=== PATIENT | female | born 1970 | race African-American/Black ===

== ENCOUNTER 2020-03-29 15:22 | Inpatient (IN) | payer BC ==
[~2020-03-29] VITALS: Ht 165.1 cm; Wt 61.2 kg
--- NOTE | 2020-03-29 15:30 | NUR ---
ED Nurse Note: Pt ambulated to ED from home d/t lower abdominal pain and lower back pain worsen today. Pt is AOx4, calm and cooperative to care, VSS, breathing even and unlabored, per pt, she had a surgery yesterday. Pt was placed on bed and gown
[2020-03-29 15:45] VITALS: BP 120/8
[2020-03-29] MEDS ORDERED: Pantoprazole Inj IVP ONE (15:45)
[2020-03-29] MEDS ORDERED: cefTRIAXone 1 GM in NS 55 ML IVPB ONE (15:45)
[2020-03-29] MEDS ORDERED: Morphine Sulfate 4mg/ml Inj (IV USE ONLY) IVP ONE (16:00)
--- NOTE | 2020-03-29 16:03 | Emergency Room Report ---
History of Present Illness General Chief Complaint: General Complaint Source: Patient Present Illness HPI 49F PMHx uterine fibroids POD #1 uterine artery embolization with Dr Ramirez for abdominal pain and back pain since yesterday. Patient denies CRUZ, CP, SOB, fever, cough, n/v/d, melena, hemotechezia, bowel/bladder incontinence, urinary retention, rash. The patient's symptoms were gradual onset, severity was moderate, duration since yesterday. Quality: aching Past medical history: fibroids Past surgical history: uterine artery embolization Smoking: Denies Alcohol use: Denies Drug use: Denies Review of systems: CONST: No fevers or chills, No night sweats PULMONARY: No productive cough, No shortness of breath CARDIAC: No chest pain, No palpitations GI: No vomiting, No diarrhea , No melena_or_BRBPR : No dysuria, No hematuria, No discharge NEURO: No new_focal_weakness_or_numbness, No confusion, No vision changes 14 point Review of Systems is otherwise negative except per HPI Physical Exam: GENERAL: Awake_alert_ nontoxic, no acute distress Spo2 98% on RA -normal EYES: Extraocular muscles are intact. Conjunctivae clear. Lids without swelling ENT: External nose and ear normal_in_appearance. Oropharynx clear. Head_atraumatic, Moist_oral_mucosa NECK: No JVD. No meningismus. No thyromegaly. Supple. Trachea midline RESP: Normal respiratory effort. Symmetric rise. No stridor. Clear_to_auscultation_No_rales_No_wheezes CARDIAC: Regular rate and regular rhytm. No_significant pedal edema. ABDOMEN: Soft. Mildly TTP. Non peritoneal. No_rebound_or_guarding. Negative sahu. Non peritoneal. MSK: Normal muscle tone, without rigidity. Extremities without asymmetric deformity or swelling. SKIN: Warm and dry. No visible cyanosis or pallor/. No petechiae NEUROLOGIC: Alert, oriented x3. Motor_and_sensation_grossly_intact. No truncal ataxia. Gait_normal Psych: Normal mood and affect, normal judgment and insight - COORDINATION OF CARE Case was discussed with: Patient Any labs and imaging that were ordered were interpreted as part of the medical decision making: Medical Decision Making/Plan: Differential diagnosis includes cholecystitis, choledocholithiasis, hepatitis, small bowel obstruction, volvulus, AAA, pancreatitis, atypical appendicitis, gastroparesis, gastritis, peptic ulcer disease, among others. Patient is well appearing with stable vital signs. Abdominal exam is non per itoneal with no guarding or rebound. Labs show stable Hgb of 10. No uremia. Doubt active GI bleed. GI consulted by MAIL CALLER Dr Ramirez. EKG shows normal sinus rhythm without any ischemia. CT scan shows ileus and constipation. No small bowel obstruction. No free fluid. Again demonstrated are fibroids The patient denies any bloody stool and has no pain out of proportion to exam, and no significant risk factors for mesenteric ischemia such as atrial fibrillation or severe PAD/PVD (peripheral arterial / vascular disease), thus definitive workup to rule out mesenteric ischemia was not pursued. Patient is afebrile, without any significant tenderness in the RUQ, and a negative [place] sign. The patients presentation does not appear to be consistent with acute cholecystitis and thus definitive imaging to rule it out was not pursued. The patient has no significant risk factors for AAA (abdominal aortic aneurysm) such as age over 50 with history of hypertension, connective tissue disorder, or 1st degree relative with AAA. the patient has normal dorsalis pedis pulses, no radiation of pain to the back, and no pulsatile mass felt on exam. The patients profile was overall low risk for AAA and definitive workup was not pursued. The patients symptoms are not consistent with ACS (acute coronary syndrome), symptoms are not exertional, EKG without obvious ischemic change. I spoke with Dr. Ramirez/Fabio, and reviewed the patients presentation, workup, results, and treatment. Dr Ramirez spoke with Dr Gomez for GI bleed. Pt received morphien for pain control. PPI and rocephin given as well. They will admit the patient for further care and evaluation, and assume care of the patient at this time. 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: No Patient History Now: No Nursing Documentation-PMH Past Medical History: No Stated History Physical Exam Vital Signs Date Time Temp Pulse Resp B/P (MAP) Pulse Ox O2 Delivery O2 Flow Rate FiO2 03/29/20 15:28 98.1 82 16 120/8 (45) 98 Room Air Sp02 EP Interpretation: reviewed, normal Medical Decision Making Diagnostic Impression: Primary Impression: Abdominal pain Additional Impressions: Post-op pain Anemia Hypokalemia Ileus Constipation Hepatic cyst EKG Diagnostic Results SAVANNAH Holt Text 12-lead EKG (interpreted by me) Time: 1606 Indication: Rhythm analysis Tracing visualized and Interpreted by me. Rhythm: Normal sinus rhythm Rate: 79 bpm QTc: 410 Morphology: No_significant_ST_elevations_or_depressions, No STEMI Impression: Normal_sinus_rhythm_without_significant_abnormality Rhythm Strip Diag. Results Rhythm Strip Time: 16:16 EP Interpretation: yes Rate: 89 Rhythm: NSR, no PVC's, no ectopy CT/MRI/US Diagnostic Results CT/MRI/US Diagnostic Results : Impression CT Abdomen and Pelvis With Intravenous Contrast CLINICAL HISTORY: ABD PAIN TECHNIQUE: Axial computed tomography images of the abdomen and pelvis with intravenous contrast. CTDI is 5 mGy and DLP is 291 mGy-cm. One or more of the following dose reduction techniques were used: automated exposure control, adjustment of the mA and/or kV according to patient size, use of iterative reconstruction technique. COMPARISON: No relevant prior studies available. FINDINGS: Lung bases: Unremarkable. ABDOMEN: Liver: Small right hepatic cyst. Gallbladder and bile ducts: Unremarkable. No calcified stones. Pancreas: Unremarkable. Spleen: Unremarkable. Adrenals: Unremarkable. Kidneys and ureters: Unremarkable. No hydronephrosis. Stomach and bowel: Moderate colonic stool/air which may be ileus/constipation. No mechanical bowel obstruction. No diverticulitis. PELVIS: Appendix: No findings to suggest acute appendicitis. Bladder: Unremarkable. Reproductive: Large uterine fibroids. ABDOMEN and PELVIS: Intraperitoneal space: No free air. Bones/joints: No acute fracture. Soft tissues: Unremarkable. Vasculature: Unremarkable. Lymph nodes: Unremarkable. IMPRESSION: 1. Moderate colonic stool/air which may be ileus/constipation. No mechanical bowel obstruction. No diverticulitis. 2. Large uterine fibroids. Radiologist: Rocky Willett M.D. Electronically Signed: 03/29/20 18:27 Study ready at 18:13 and initial results transmitted at 18:27 Last Vital Signs Date Time Temp Pulse Resp B/P (MAP) Pulse Ox O2 Delivery O2 Flow Rate FiO2 03/29/20 15:28 98.1 82 16 120/8 (45) 98 Room Air Disposition: ADMITTED INPATIENT Admit Decision Time: 16:03 Condition: Stable Referrals: Song Ramirez MD (PCP) Sabine Berger D.O. Mar 29, 2020 16:03
--- NOTE | 2020-03-29 16:12 | NUR ---
ED Nurse Note: Dr Ramirez at bedside
[2020-03-29 16:24] LABS: BASOPHILS % (AUTO) 0.4 % (0.0-2.0); EOSINOPHILS % (AUTO) 0.2 % (0.0-3.0); HEMOGLOBIN 10.7 G/DL (12.0-16.0); LYMPHOCYTES % (AUTO) 8.4 % (20.0-45.0); MEAN CORPUSCULAR VOLUME 63 FL (80-99); MONOCYTES % (AUTO) 8.2 % (1.0-10.0); NEUTROPHILS % (AUTO) 82.8 % (45.0-75.0); PLATELET COUNT 206 K/UL (150-450); RED BLOOD COUNT 6.24 M/UL (4.20-5.40); RED CELL DISTRIBUTION WIDTH 23.8 % (11.6-14.8); WHITE BLOOD COUNT 9.6 K/UL (4.8-10.8)
[2020-03-29 16:36] LABS: INR 1.2 (0.9-1.1)
[2020-03-29 16:37] LABS: ANION GAP 9 mmol/L (5-15); BLOOD UREA NITROGEN 4 mg/dL (7-18); CALCIUM 9.3 MG/DL (8.5-10.1); CARBON DIOXIDE 27 MMOL/L (21-32); CHLORIDE 100 MMOL/L (98-107); CREATININE 0.7 MG/DL (0.55-1.30); POTASSIUM 3.4 MMOL/L (3.5-5.1); SODIUM 136 MMOL/L (136-145)
[2020-03-29 16:42] LABS: ALANINE AMINOTRANSFERASE 18 U/L (12-78); ALBUMIN 3.6 G/DL (3.4-5.0); ALBUMIN/GLOBULIN RATIO 0.7 (1.0-2.7); ALKALINE PHOSPHATASE 60 U/L (46-116); ASPARTATE AMINO TRANSFERASE 16 U/L (15-37); BILIRUBIN,TOTAL 0.5 MG/DL (0.2-1.0)
--- NOTE | 2020-03-29 16:52 | NUR ---
ED Nurse Note: pt unable to provide urine as of now.
--- NOTE | 2020-03-29 17:47 | NUR ---
ED Nurse Note: pt was taken to CT
--- NOTE | 2020-03-29 18:27 | Diagnostic Imaging Report ---
EXAM: CT Abdomen and Pelvis With Intravenous Contrast CLINICAL HISTORY: ABD PAIN TECHNIQUE: Axial computed tomography images of the abdomen and pelvis with intravenous contrast. CTDI is 5 mGy and DLP is 291 mGy-cm. One or more of the following dose reduction techniques were used: automated exposure control, adjustment of the mA and/or kV according to patient size, use of iterative reconstruction technique. COMPARISON: No relevant prior studies available. FINDINGS: Lung bases: Unremarkable. ABDOMEN: Liver: Small right hepatic cyst. Gallbladder and bile ducts: Unremarkable. No calcified stones. Pancreas: Unremarkable. Spleen: Unremarkable. Adrenals: Unremarkable. Kidneys and ureters: Unremarkable. No hydronephrosis. Stomach and bowel: Moderate colonic stool/air which may be ileus/constipation. No mechanical bowel obstruction. No diverticulitis. PELVIS: Appendix: No findings to suggest acute appendicitis. Bladder: Unremarkable. Reproductive: Large uterine fibroids. ABDOMEN and PELVIS: Intraperitoneal space: No free air. Bones/joints: No acute fracture. Soft tissues: Unremarkable. Vasculature: Unremarkable. Lymph nodes: Unremarkable. IMPRESSION: 1. Moderate colonic stool/air which may be ileus/constipation. No mechanical bowel obstruction. No diverticulitis. 2. Large uterine fibroids.
--- NOTE | 2020-03-29 18:55 | NUR ---
ED Nurse Note: urine collected, sent to lab
[2020-03-29] MEDS ORDERED: DiphenhydrAMINE 50mg/ml Inj IVP ONE (19:00)
[2020-03-29] MEDS ORDERED: Metoclopramide 10mg/2ml Inj IVP ONE (19:00)
[2020-03-29 19:01] LABS: APPEARANCE,URINE CLEAR; BILIRUBIN, URINE NEGATIVE (NEGATIVE); COLOR,URINE PALE YELLOW; GLUCOSE, URINE (UA) NEGATIVE (NEGATIVE); KETONES,URINE 3+ (NEGATIVE); LEUKOCYTE ESTERASE ,URINE NEGATIVE (NEGATIVE); NITRITE,URINE NEGATIVE (NEGATIVE); PH,URINE 5 (4.5-8.0); PROTEIN,URINE NEGATIVE (NEGATIVE); UROBILINOGEN,URINE NORMAL MG/DL (0.0-1.0)
--- NOTE | 2020-03-29 19:31 | NUR ---
ED Nurse Note: hand off given to chelita avz.
--- NOTE | 2020-03-29 20:50 | NUR ---
NURSE NOTES: Receive a report from BROOKS Javed from ED.
--- NOTE | 2020-03-29 21:00 | NUR ---
TRANSFER TO FLOOR: Patient transferred to [facility] as ordered, per Fabio. Report given to Alexander Ramos. All Belongings sent with the pt. Rn took the pt in stable condition.
--- NOTE | 2020-03-29 21:05 | NUR ---
NURSE NOTES: Pt admitted via gurney from ED. Awake and alert. Noted abdominal pain. Give pain medication at ED. No nausea/ vomiting noted. Ambulatory steady gaits. IV site is left AC. Skin intact. Done belonging list including horn-$400 and credit cards: pt wants to keep herself. Given unit orientation. Call light within reach. Will continue to monitor.
[2020-03-29 21:20] VITALS: BP 135/67
[2020-03-29] MEDS ORDERED: Morphine Sulfate 2mg/ml Inj(IV/IM USE ONLY) IVP PRN (21:45)
[2020-03-29] MEDS ORDERED: Acetaminophen 500mg (ES) tab ORAL PRN ×2 (21:45)
[2020-03-29] MEDS ORDERED: HYDROcodone/Acetamin 5/325 tab ORAL PRN (21:45)
[2020-03-29] MEDS ORDERED: Milk of Magnesia 30ml Ud ORAL PRN (21:45)
--- NOTE | 2020-03-29 21:45 | NUR ---
NURSE NOTES: Receive admission orders from Dr. Mccarthy. Read back orders. Order noted and carried out.
[2020-03-29] MEDS ORDERED: Miralax 17gm pkt ORAL PRN (22:00)
[2020-03-29] MEDS: Docusate 250mg cap ORAL SCH (22:13)
[2020-03-29] MEDS: Augmentin 875mg Tab ORAL SCH (22:38)
[2020-03-29] MEDS: Dextrose 5%/Lactated Ringer's 1,000 ML IV SCH (22:39)
[2020-03-30] VITALS: BP 145/99
--- NOTE | 2020-03-30 00:05 | NUR ---
NURSE NOTES: Pain did not control with Morphine IVS. Call Dr. Mccarthy and receive new pain medication. Order noted and carried out.
[2020-03-30] MEDS: HYDROmorphone 1mg/ml Carpuject IVP PRN ×2 (00:18→04:15)
[2020-03-30 04:00] VITALS: BP 131/79
--- NOTE | 2020-03-30 06:00 | NUR ---
NURSE NOTES: Inform pt of getting hot pad from [facility] as soon as it is open. Pain medication does not last 2hrs by pt's. Will continue to follow up.
[2020-03-30 06:32] LABS: BASOPHILS % (AUTO) 0.5 % (0.0-2.0); HEMATOCRIT 35.6 % (37.0-47.0); HEMOGLOBIN 10.1 G/DL (12.0-16.0); LYMPHOCYTES % (AUTO) 5.9 % (20.0-45.0); MEAN CORPUSCULAR VOLUME 63 FL (80-99); MONOCYTES % (AUTO) 8.9 % (1.0-10.0); NEUTROPHILS % (AUTO) 84.7 % (45.0-75.0); PLATELET COUNT 233 K/UL (150-450); RED BLOOD COUNT 5.64 M/UL (4.20-5.40); RED CELL DISTRIBUTION WIDTH 23.3 % (11.6-14.8); WHITE BLOOD COUNT 12.4 K/UL (4.8-10.8)
[2020-03-30 06:51] LABS: ANION GAP 6 mmol/L (5-15); BLOOD UREA NITROGEN 3 mg/dL (7-18); CALCIUM 9.1 MG/DL (8.5-10.1); CARBON DIOXIDE 29 MMOL/L (21-32); CHLORIDE 101 MMOL/L (98-107); CREATININE 0.7 MG/DL (0.55-1.30); SODIUM 136 MMOL/L (136-145)
--- NOTE | 2020-03-30 07:19 | NUR ---
NURSE NOTES: Report received from o RN, rounds made. Patient dangling at bedside. AOx4, rocking back and forth, moaning, will review eMAR and medicate as ordered. Respirations even on RA. IV D5LR infusing to LAC, site asymptomatic. Denies NV, gas, BM. Bowel sounds hypoactive, last BM 03/28 (before surgery). Right groin bandaid (refused to allow RN to assess). Call light in reach, bed in lowest position, will continue to monitor.
--- NOTE | 2020-03-30 07:30 | NUR ---
NURSE HAND-OFF: Important Events on Shift:new admission. Pain control x1-Morphine, x2 Dilaudid Patient Status: [] Diet: [regular] Pending Orders: [] Pending Results/Labs:[] Pending MD notification:[pain medication] Latest Vital Signs: Temperature 97.8 , Pulse 87 , B/P 131 /79 , Respiratory Rate 18 , O2 SAT 96 , Room Air, O2 Flow Rate . Vital Sign Comment: [] Latest Valdez Fall Score: 20 Fall Risk: Low Risk Safety Measures: Call light Within Reach, Bed Alarm , Side Rails Side Rails x2, Bed position Low and Locked. Fall Precautions: Patient Fall Education Report given to BROOKS Niño.
--- NOTE | 2020-03-30 07:55 | NUR ---
NURSE NOTES: Spoke to Dr. Goodwin, updated on patient's current status, reviewed all eMAR meds, orders received for pain medication changes.
[2020-03-30 08:00] VITALS: BP 121/83
[2020-03-30] MEDS ORDERED: HYDROmorphone 1mg/ml Carpuject IVP PRN (08:00)
[2020-03-30] MEDS: Dextrose 5%/Lactated Ringer's 1,000 ML IV SCH ×2 (08:15→18:27)
[2020-03-30] MEDS: Augmentin 875mg Tab ORAL SCH ×2 (08:15→20:17)
[2020-03-30] MEDS: Docusate 250mg cap ORAL SCH (08:15)
--- NOTE | 2020-03-30 09:21 | NUR ---
NURSE NOTES: Spoke to Dr. Gomez, updated on patient current status, orders received for Colace, Miralax, Dulcolax, see orders.
[2020-03-30] MEDS ORDERED: Bisacodyl EC 5mg tab ORAL SCH (09:30)
[2020-03-30] MEDS ORDERED: Lactulose 20gm/30ml UDC ORAL SCH (09:45)
--- NOTE | 2020-03-30 11:16 | History and Physical ---
History of Present Illness General Date patient seen: Mar 30, 2020 Time patient seen: 09:30 Reason for Hospitalization: General Complaint Present Illness HPI 49 years old female with past medical history of uterine fibroids, s/p uterine artery embolization on 03/28 presented to emergency department with abdominal pain. She reported abdominal distention and not passing flatus. She denied fever and chills. She denied nausea , vomiting or diarrhea. No melena no hematochezia. No dysuria. She denied chest pain or shortness of breath. Upon evaluation vital signs were stable. Laboratory work-up revealed no leukocytosis, hemoglobin 10.7 , hematocrit 29 ; this morning WBC 12.4. Chemistry revealed potassium 3.4, sodium 136 ,stable other electrolytes and renal parameters ; stable LFT . Troponin negative Urinalysis revealed RBC , but no evidence of urinary tract infection. CT of the abdomen and pelvis revealed moderate colonic stool/air , which may be due to/constipation vs ileus. In emergency department patient received empiric antibiotic, antiemetic, IV fluids , analgesic , Protonix and admitted for further management. 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, no smoking, ETOH abuse or illicit drug use Family history: non-contributory Medications: reviewed Allergies: NKDA Allergies: Coded Allergies: No Known Allergies (Unverified , 03/29/20) COVID-19 Screening Contact w/high risk pt: No Experienced COVID-19 symptoms?: No Patient History Healthcare decision maker Resuscitation status Full code Advanced Directive on File Review of Systems Constitutional: Reports: no symptoms Eye: Reports: no symptoms ENT: Reports: no symptoms Respiratory: Reports: no symptoms Cardiovascular: Reports: no symptoms Gastrointestinal: Reports: see HPI Genitourinary: Reports: see HPI Skin: Reports: no symptoms Psychiatric: Reports: no symptoms Neurological: Reports: no symptoms Endocrine: Reports: no symptoms Hematologic/Lymphatic: Reports: no symptoms Physical Exam General Appearance: WD/WN, no apparent distress, alert Lines, tubes and drains: peripheral HEENT: normocephalic, atraumatic, anicteric, mucous membranes moist, PERRL Neck: supple Respiratory/Chest: chest wall non-tender, lungs clear, no respiratory distress, no accessory muscle use Cardiovascular/Chest: normal peripheral pulses, normal rate Abdomen: soft - distended , hypoactive BS Extremities: normal range of motion, non-tender, no calf tenderness, normal capillary refill Skin Exam: warm/dry Neurologic: saddle and side wire stitcher II-XII grossly normal, no motor/sensory deficits, alert, oriented x 3, responsive Musculoskeletal: normal muscle bulk Last 24 Hour Vital Signs Date Time Temp Pulse Resp B/P (MAP) Pulse Ox O2 Delivery O2 Flow Rate FiO2 03/30/20 08:00 98.9 98 18 121/83 (96) 94 03/30/20 04:00 97.8 87 18 131/79 (96) 96 03/30/20 00:00 99.0 108 18 145/99 (114) 95 03/29/20 21:20 Room Air 03/29/20 21:20 99.9 91 18 135/67 (89) 97 03/29/20 21:00 98.1 78 19 129/72 98 Room Air 03/29/20 15:45 98.1 16 120/8 98 Room Air 03/29/20 15:45 82 16 Room Air 03/29/20 15:28 98.1 82 16 120/8 (45) 98 Room Air Intake and Output 03/29/20 03/30/20 19:00 07:00 Intake Total 800 ml Balance 800 ml Intake IV Total 800 ml # Voids 3 Laboratory Tests Test 03/29/20 16:00 03/29/20 18:50 03/30/20 05:45 White Blood Count 9.6 K/UL (4.8-10.8) 12.4 K/UL (4.8-10.8) H Red Blood Count 6.24 M/UL (4.20-5.40) H 5.64 M/UL (4.20-5.40) H Hemoglobin 10.7 G/DL (12.0-16.0) L 10.1 G/DL (12.0-16.0) L Hematocrit 39.0 % (37.0-47.0) 35.6 % (37.0-47.0) L Mean Corpuscular Volume 63 FL (80-99) L 63 FL (80-99) L Mean Corpuscular Hemoglobin 17.1 PG (27.0-31.0) L 17.9 PG (27.0-31.0) L Mean Corpuscular Hemoglobin Concent 27.4 G/DL (32.0-36.0) L 28.4 G/DL (32.0-36.0) L Red Cell Distribution Width 23.8 % (11.6-14.8) H 23.3 % (11.6-14.8) H Platelet Count 206 K/UL (150-450) 233 K/UL (150-450) Mean Platelet Volume 7.6 FL (6.5-10.1) 9.8 FL (6.5-10.1) Neutrophils (%) (Auto) 82.8 % (45.0-75.0) H 84.7 % (45.0-75.0) H Lymphocytes (%) (Auto) 8.4 % (20.0-45.0) L 5.9 % (20.0-45.0) L Monocytes (%) (Auto) 8.2 % (1.0-10.0) 8.9 % (1.0-10.0) Eosinophils (%) (Auto) 0.2 % (0.0-3.0) 0.0 % (0.0-3.0) Basophils (%) (Auto) 0.4 % (0.0-2.0) 0.5 % (0.0-2.0) Prothrombin Time 13.2 SEC (9.30-11.50) H Prothromb Time International Ratio 1.2 (0.9-1.1) H Activated Partial Thromboplast Time 29 SEC (23-33) Sodium Level 136 MMOL/L (136-145) 136 MMOL/L (136-145) Potassium Level 3.4 MMOL/L (3.5-5.1) L 4.0 MMOL/L (3.5-5.1) Chloride Level 100 MMOL/L (98-107) 101 MMOL/L (98-107) Carbon Dioxide Level 27 MMOL/L (21-32) 29 MMOL/L (21-32) Anion Gap 9 mmol/L (5-15) 6 mmol/L (5-15) Blood Urea Nitrogen 4 mg/dL (7-18) L 3 mg/dL (7-18) L Creatinine 0.7 MG/DL (0.55-1.30) 0.7 MG/DL (0.55-1.30) Estimat Glomerular Filtration Rate > 60 mL/min (>60) > 60 mL/min (>60) Glucose Level 104 MG/DL (74-106) 132 MG/DL (74-106) H Calcium Level 9.3 MG/DL (8.5-10.1) 9.1 MG/DL (8.5-10.1) Total Bilirubin 0.5 MG/DL (0.2-1.0) Aspartate Amino Transf (AST/SGOT) 16 U/L (15-37) Alanine Aminotransferase (ALT/SGPT) 18 U/L (12-78) Alkaline Phosphatase 60 U/L (46-116) Troponin I 0.000 ng/mL (0.000-0.056) Total Protein 8.5 G/DL (6.4-8.2) H Albumin 3.6 G/DL (3.4-5.0) Globulin 4.9 g/dL Albumin/Globulin Ratio 0.7 (1.0-2.7) L Lipase 87 U/L (73-393) Human Chorionic Gonadotropin, Quant 1 mIU/mL (1-6) Urine Color Pale yellow Urine Appearance Clear Urine pH 5 (4.5-8.0) Urine Specific [place] 1.010 (1.005-1.035) Urine Protein Negative (NEGATIVE) Urine Glucose (UA) Negative (NEGATIVE) Urine Ketones 3+ (NEGATIVE) H Urine Blood 5+ (NEGATIVE) H Urine Nitrite Negative (NEGATIVE) Urine Bilirubin Negative (NEGATIVE) Urine Urobilinogen Normal MG/DL (0.0-1.0) Urine Leukocyte Esterase Negative (NEGATIVE) Urine RBC 10-15 /HPF (0 - 2) H Urine WBC 0-2 /HPF (0 - 2) Urine Squamous Epithelial Cells Few /LPF (NONE/OCC) Urine Bacteria Occasional /HPF (NONE) Height (Feet): 5 Height (Inches): 5.00 Weight (Pounds): 135 Medications Current Medications Medications (Trade) Dose Ordered Sig/Tonya Route PRN Reason Start Time Stop Time Status Last Admin Dose Admin Acetaminophen (Tylenol) 500 mg Q4H PRN ORAL FEVER 03/29/20 21:45 04/28/20 21:44 Acetaminophen (Tylenol) 500 mg Q4H PRN ORAL Mild Pain (Pain Scale 1-3) 03/29/20 21:45 04/28/20 21:44 Acetaminophen/ Hydrocodone Bitart ([place] 5/325) 1 tab Q4H PRN ORAL Moderate Pain (Pain Scale 4-6) 03/29/20 21:45 04/05/20 21:44 Amoxicillin/ Clavulanate Potassium (Augmentin) 875 mg EVERY 12 HOURS ORAL 03/29/20 23:00 04/05/20 22:59 03/30/20 08:15 Bisacodyl (Dulcolax) 10 mg ONCE ORAL 03/30/20 09:30 03/30/20 12:00 03/30/20 09:42 Dextrose/Lactated Ringer's 1,000 ml @ 100 mls/hr Q10H IV 03/29/20 22:30 04/28/20 22:29 03/30/20 08:15 Docusate Sodium (Colace) 100 mg TWICE A DAY ORAL 03/30/20 18:00 04/29/20 17:59 Hydromorphone HCl (Dilaudid) 1 mg EVERY 3 HOURS PRN IVP Mild Pain (Pain Scale 1-3) 03/30/20 08:00 04/06/20 07:59 Hydromorphone HCl (Dilaudid) 2 mg Q2H PRN IVP Severe Pain (Pain Scale 7-10) 03/30/20 08:00 04/06/20 07:59 03/30/20 08:16 Hydromorphone HCl (Dilaudid) 2 mg Q3H PRN IVP Moderate Pain (Pain Scale 4-6) 03/30/20 08:00 04/06/20 07:59 Lactulose (Cephulac) 30 gm ONCE ORAL 03/30/20 09:45 03/30/20 12:00 Magnesium Hydroxide (Mom) 30 ml DAILYPRN PRN ORAL Constipation 03/29/20 21:45 04/28/20 21:44 Ondansetron HCl (Zofran) 4 mg Q4H PRN IVP Nausea & Vomiting 03/29/20 21:45 04/28/20 21:44 Polyethylene Glycol (Miralax) 17 gm DAILY ORAL 03/30/20 22:00 04/28/20 21:59 Assessment/Plan Assessment/Plan: ASSESSMENT abdominal pain with distention constipation possible ileus uterine fibroids, s/p recent UAE 03/28/20 anemia hypokalemia - already corrected PLAN OF CARE MS floor IVF KUB now GI consult pain management bowel regimen Lactulose x 1 a/emetic prn monitor HH with goal to keep Hgb > 7 supportive care case discussed and evaluated by supervising physician Odessa Rutherford NP Mar 30, 2020 11:16
--- NOTE | 2020-03-30 11:52 | General Progress Note ---
Subjective ROS Limited/Unobtainable: Yes Allergies: Coded Allergies: No Known Allergies (Unverified , 03/29/20) Objective Last 24 Hour Vital Signs Date Time Temp Pulse Resp B/P (MAP) Pulse Ox O2 Delivery O2 Flow Rate FiO2 03/30/20 08:00 98.9 98 18 121/83 (96) 94 03/30/20 04:00 97.8 87 18 131/79 (96) 96 03/30/20 00:00 99.0 108 18 145/99 (114) 95 03/29/20 21:20 Room Air 03/29/20 21:20 99.9 91 18 135/67 (89) 97 03/29/20 21:00 98.1 78 19 129/72 98 Room Air 03/29/20 15:45 98.1 16 120/8 98 Room Air 03/29/20 15:45 82 16 Room Air 03/29/20 15:28 98.1 82 16 120/8 (45) 98 Room Air Intake and Output 03/29/20 03/30/20 18:59 06:59 Intake Total 700 ml Balance 700 ml Intake IV Total 700 ml # Voids 3 Laboratory Tests 03/29/20 16:00: White Blood Count 9.6, Red Blood Count 6.24H, Hemoglobin 10.7L, Hematocrit 39.0, Mean Corpuscular Volume 63L, Mean Corpuscular Hemoglobin 17.1L, Mean Corpuscular Hemoglobin Concent 27.4L, Red Cell Distribution Width 23.8H, Platelet Count 206, Mean Platelet Volume 7.6, Neutrophils (%) (Auto) 82.8H, Lymphocytes (%) (Auto) 8.4L, Monocytes (%) (Auto) 8.2, Eosinophils (%) (Auto) 0.2, Basophils (%) (Auto) 0.4, Prothrombin Time 13.2H, Prothromb Time International Ratio 1.2H, Activated Partial Thromboplast Time 29, Sodium Level 136, Potassium Level 3.4L, Chloride Level 100, Carbon Dioxide Level 27, Anion Gap 9, Blood Urea Nitrogen 4L, Creatinine 0.7, Estimat Glomerular Filtration Rate > 60, Glucose Level 104, C alcium Level 9.3, Total Bilirubin 0.5, Aspartate Amino Transf (AST/SGOT) 16, Alanine Aminotransferase (ALT/SGPT) 18, Alkaline Phosphatase 60, Troponin I 0.000, Total Protein 8.5H, Albumin 3.6, Globulin 4.9, Albumin/Globulin Ratio 0.7L, Lipase 87, Human Chorionic Gonadotropin, Quant 1 03/29/20 18:50: Urine Color Pale yellow, Urine Appearance Clear, Urine pH 5, Urine Specific [place] 1.010, Urine Protein Negative, Urine Glucose (UA) Negative, Urine Ketones 3+H, Urine Blood 5+H, Urine Nitrite Negative, Urine Bilirubin Negative, Urine Urobilinogen Normal, Urine Leukocyte Esterase Negative, Urine RBC 10-15H, Urine WBC 0-2, Urine Squamous Epithelial Cells Few, Urine Bacteria Occasional 03/30/20 05:45: White Blood Count 12.4H, Red Blood Count 5.64H, Hemoglobin 10.1L, Hematocrit 35.6L, Mean Corpuscular Volume 63L, Mean Corpuscular Hemoglobin 17.9L, Mean Corpuscular Hemoglobin Concent 28.4L, Red Cell Distribution Width 23.3H, Platelet Count 233, Mean Platelet Volume 9.8, Neutrophils (%) (Auto) 84.7H, Lymphocytes (%) (Auto) 5.9L, Monocytes (%) (Auto) 8.9, Eosinophils (%) (Auto) 0.0, Basophils (%) (Auto) 0.5, Sodium Level 136, Potassium Level 4.0, Chloride Level 101, Carbon Dioxide Level 29, Anion Gap 6, Blood Urea Nitrogen 3L, Creatinine 0.7, Estimat Glomerular Filtration Rate > 60, Glucose Level 132H, Calcium Level 9.1 Height (Feet): 5 Height (Inches): 5.00 Weight (Pounds): 135 General Appearance: alert EENT: PERRL/EOMI Neck: supple Cardiovascular: normal rate Respiratory/Chest: decreased breath sounds Abdomen: hypoactive bowel sounds, tender Extremities: non-tender Assessment/Plan Problem List: (1) Post-op pain ICD Codes: G89.18 - Other acute postprocedural pain SNOMED: 762064267 (2) Abdominal pain ICD Codes: R10.9 - Unspecified abdominal pain SNOMED: 17655668 (3) Hypokalemia ICD Codes: E87.6 - Hypokalemia SNOMED: 48862412 (4) Constipation ICD Codes: K59.00 - Constipation, unspecified SNOMED: 86745467 (5) Anemia ICD Codes: D64.9 - Anemia, unspecified SNOMED: 697380439 (6) Hepatic cyst ICD Codes: K76.89 - Other specified diseases of liver SNOMED: 35629347 Assessment/Plan: on colace and miralax pending Relistor shot will add Linzess tomorrow if no BM anemia work up CT reviewed Dayron Gomez MD Mar 30, 2020 11:52
[2020-03-30 12:00] VITALS: BP 126/83
--- NOTE | 2020-03-30 13:30 | NUR ---
NURSE NOTES: Bilateral TEDS/SCDS applied as ordered.
--- NOTE | 2020-03-30 15:07 | NUR ---
CASE MANAGEMENT:REVIEW 49 YR OLD FEMALE WALKED INTO ER CC; ABDOMINAL AND BACK PAIN SI: POST OP PAIN. ILEUS 98.0 82 16 120 98% ON RA K-3.4 IS: 500CC NS BOLUS X1 IV ROCEPHIN X1 IV MORPHINE X1 IV PROTONIX X1 CT ABD/PELVIS : TO MED/SURG 3 EAST PLAN: PAIN MANAGEMENT W/IV MORPHINE Q4HRS PRN
[2020-03-30] MEDS: Relistor 12mg/0.6ml Vial SUBQ SCH (15:46)
[2020-03-30 15:47] VITALS: BP 122/82
--- NOTE | 2020-03-30 15:57 | NUR ---
NURSE NOTES: Dr. Goodwin updated on patient current status, Temperature 99.3-99.5 and [address] no BM. Dr. Gomez notified that still no BM, reviewed all laxatives and other medications (Relistor) given, no further orders at this time.
[2020-03-30] MEDS: Docusate 100mg cap ORAL SCH (17:33)
--- NOTE | 2020-03-30 17:50 | NUR ---
NURSE NOTES: Spoke with Dr. Goodwin regarding patient current status, no BM yet, will administer MOM as ordered. Attempted to administer MOM after phone call with Dr. Goodwin, however, patient was up to bathroom, had diarrheal BM, refused MOM.
--- NOTE | 2020-03-30 17:51 | General Surgery Progress Note ---
General Surgery-Progress Note Subjective Day of Surgery: march 28 Procedure Performed uterine fibroid embolization Chief Complaint: pain, constipation Symptoms: improved, tolerating diet, voiding well, passing flatus Objective Last 24 Hour Vital Signs Date Time Temp Pulse Resp B/P (MAP) Pulse Ox O2 Delivery O2 Flow Rate FiO2 03/30/20 15:47 99.5 105 16 122/82 (95) 95 03/30/20 12:00 99.3 104 18 126/83 (97) 95 03/30/20 08:00 98.9 98 18 121/83 (96) 94 03/30/20 04:00 97.8 87 18 131/79 (96) 96 03/30/20 00:00 99.0 108 18 145/99 (114) 95 03/29/20 21:20 Room Air 03/29/20 21:20 99.9 91 18 135/67 (89) 97 03/29/20 21:00 98.1 78 19 129/72 98 Room Air I&O Intake and Output 03/29/20 03/30/20 19:00 07:00 Intake Total 800 ml Balance 800 ml Intake IV Total 800 ml # Voids 3 Dressing: dry Wound: clean, dry Drains: none Cardiovascular: RSR Respiratory: clear Abdomen: soft, flat, scaphoid, tenderness, present bowel sounds Extremities: no edema, no tenderness, no cyanosis Laboratory Tests Test 03/29/20 18:50 03/30/20 05:45 Urine Color Pale yellow Urine Appearance Clear Urine pH 5 (4.5-8.0) Urine Specific [place] 1.010 (1.005-1.035) Urine Protein Negative (NEGATIVE) Urine Glucose (UA) Negative (NEGATIVE) Urine Ketones 3+ (NEGATIVE) H Urine Blood 5+ (NEGATIVE) H Urine Nitrite Negative (NEGATIVE) Urine Bilirubin Negative (NEGATIVE) Urine Urobilinogen Normal MG/DL (0.0-1.0) Urine Leukocyte Esterase Negative (NEGATIVE) Urine RBC 10-15 /HPF (0 - 2) H Urine WBC 0-2 /HPF (0 - 2) Urine Squamous Epithelial Cells Few /LPF (NONE/OCC) Urine Bacteria Occasional /HPF (NONE) White Blood Count 12.4 K/UL (4.8-10.8) H Red Blood Count 5.64 M/UL (4.20-5.40) H Hemoglobin 10.1 G/DL (12.0-16.0) L Hematocrit 35.6 % (37.0-47.0) L Mean Corpuscular Volume 63 FL (80-99) L Mean Corpuscular Hemoglobin 17.9 PG (27.0-31.0) L Mean Corpuscular Hemoglobin Concent 28.4 G/DL (32.0-36.0) L Red Cell Distribution Width 23.3 % (11.6-14.8) H Platelet Count 233 K/UL (150-450) Mean Platelet Volume 9.8 FL (6.5-10.1) Neutrophils (%) (Auto) 84.7 % (45.0-75.0) H Lymphocytes (%) (Auto) 5.9 % (20.0-45.0) L Monocytes (%) (Auto) 8.9 % (1.0-10.0) Eosinophils (%) (Auto) 0.0 % (0.0-3.0) Basophils (%) (Auto) 0.5 % (0.0-2.0) Sodium Level 136 MMOL/L (136-145) Potassium Level 4.0 MMOL/L (3.5-5.1) Chloride Level 101 MMOL/L (98-107) Carbon Dioxide Level 29 MMOL/L (21-32) Anion Gap 6 mmol/L (5-15) Blood Urea Nitrogen 3 mg/dL (7-18) L Creatinine 0.7 MG/DL (0.55-1.30) Estimat Glomerular Filtration Rate > 60 mL/min (>60) Glucose Level 132 MG/DL (74-106) H Calcium Level 9.1 MG/DL (8.5-10.1) Imaging no evidence of pathologic process, much stool in colon Plan Additional Comments GI management w dr alan, pain relief good, will attempt to change to po meds ff BM Song Goodwin MD Mar 30, 2020 17:51
--- NOTE | 2020-03-30 18:42 | NUR ---
NURSE NOTES: Rechecked temperature, 101.4, administered Tylenol 500 mg PO, encouraged PO fluid intake, will endorse to next shift.
--- NOTE | 2020-03-30 19:03 | NUR ---
NURSE NOTES: Dr. Goodwin notified of temperature 101.4, orders for UA, Urine Culture and Blood Culture x2. Called lab, blood culture will be drawn 03/31 399 due to Tylenol already administered. Patient aware of updated orders, reports she had a COVID swab done prior to her Embolization procedure with Dr. Goodwin (results were negative per patient).
--- NOTE | 2020-03-30 19:10 | NUR ---
NURSE NOTES: Received report from BROOKS Niño. Pt is A&Ox4. Bed in lowest position, call light within reach, side rails up x2, patient able to ambulate to restroom. Patient had an elevated temperature and acetaminophen was given, will continue to monitor.
--- NOTE | 2020-03-30 19:19 | NUR ---
NURSE HAND-OFF: Important Events on Shift:Multiple laxatives given throughout shift, BM (diarrheal x1 at 1750), Temperature 101.4 at 1837 (Medicated with Tylenol)rechecked 1910 was 100.1, BCx2 to be done 03/31 0400, Need to collect UA/Cx, Medicated with Dilaudid 2mg IV x5 Patient Status: stable Diet: regular Pending Orders: labs AM Pending Results/Labs:iron panel, CMP 03/31 Pending MD notification:none Latest Vital Signs: Temperature 100.1 , Pulse 105 , B/P 122 /82 , Respiratory Rate 16 , O2 SAT 95 , Room Air, O2 Flow Rate . Vital Sign Comment: monitor temperature Latest Valdez Fall Score: 35 Fall Risk: Medium Risk Safety Measures: Call light Within Reach, Bed Alarm , Side Rails Side Rails x2, Bed position Low and Locked. Fall Precautions: Yellow Socks Yellow Gown Door Sign Patient Fall Education Report given to Antoni GUY.
[2020-03-30 20:00] VITALS: BP 114/76
[2020-03-30] MEDS: Miralax 17gm pkt ORAL SCH (21:46)
[2020-03-31] VITALS: BP 123/82
[2020-03-31 02:01] LABS: APPEARANCE,URINE CLEAR; BILIRUBIN, URINE NEGATIVE (NEGATIVE); GLUCOSE, URINE (UA) NEGATIVE (NEGATIVE); KETONES,URINE 1+ (NEGATIVE); LEUKOCYTE ESTERASE ,URINE 1+ (NEGATIVE); NITRITE,URINE NEGATIVE (NEGATIVE); PH,URINE 5 (4.5-8.0); PROTEIN,URINE 2+ (NEGATIVE); UROBILINOGEN,URINE 1 MG/DL (0.0-1.0)
[2020-03-31 02:26] LABS: COLOR,URINE YELLOW
[2020-03-31 04:00] VITALS: BP 114/78
[2020-03-31] MEDS: Dextrose 5%/Lactated Ringer's 1,000 ML IV SCH ×2 (04:36→13:52)
[2020-03-31 07:00] LABS: HEMATOCRIT 36.4 % (37.0-47.0); HEMOGLOBIN 10.2 G/DL (12.0-16.0); MEAN CORPUSCULAR VOLUME 64 FL (80-99); PLATELET COUNT 199 K/UL (150-450); RED BLOOD COUNT 5.73 M/UL (4.20-5.40); RED CELL DISTRIBUTION WIDTH 23.4 % (11.6-14.8); WHITE BLOOD COUNT 21.7 K/UL (4.8-10.8)
[2020-03-31 07:09] LABS: % IRON SATURATION 4 % (15-50); ALANINE AMINOTRANSFERASE 10 U/L (12-78); ALBUMIN 2.8 G/DL (3.4-5.0); ALBUMIN/GLOBULIN RATIO 0.6 (1.0-2.7); ALKALINE PHOSPHATASE 58 U/L (46-116); ANION GAP 7 mmol/L (5-15); ASPARTATE AMINO TRANSFERASE 20 U/L (15-37); BILIRUBIN,TOTAL 0.5 MG/DL (0.2-1.0); BLOOD UREA NITROGEN 3 mg/dL (7-18); CALCIUM 8.9 MG/DL (8.5-10.1); CARBON DIOXIDE 30 MMOL/L (21-32); CHLORIDE 99 MMOL/L (98-107); CREATININE 0.7 MG/DL (0.55-1.30); IRON 10 ug/dL (50-175); POTASSIUM 3.5 MMOL/L (3.5-5.1); SODIUM 136 MMOL/L (136-145); TOTAL IRON BINDING CAPACITY 261 ug/dL (250-450)
--- NOTE | 2020-03-31 07:15 | NUR ---
NURSE HAND-OFF: Important Events on Shift: Pt's pain was worsening, 3x diarrhea Patient Status: sleeping Diet: regular Pending Orders: Pending Results/Labs: Pending MD notification: Latest Vital Signs: Temperature 99.3 , Pulse 110 , B/P 114 /78 , Respiratory Rate 18 , O2 SAT 96 , Room Air, O2 Flow Rate . Vital Sign Comment: VSS Latest Valdez Fall Score: 35 Fall Risk: Medium Risk Safety Measures: Call light Within Reach, Bed Alarm , Side Rails Side Rails x2, Bed position Low and Locked. Fall Precautions: Yellow Socks Yellow Gown Door Sign Patient Fall Education Report given to BROOKS Copeland.
--- NOTE | 2020-03-31 07:20 | NUR ---
NURSE NOTES: Received report from BROOKS Corrales. Rounding done with outgoing nurse. Pt a/o x 4, in bed. No SOB noted. c/o abdominal pain as 5/10. Pain med will be given as MD ordered. D5LR is running @100 ml/hr via Lt AC. Bed in lowest position, call light within reach. Will continue to monitor.
--- NOTE | 2020-03-31 07:49 | NUR ---
NURSE NOTES: Dr. Goodwin ordered [place] 10/325 po Q3 PRN. Noted and carried out.
[2020-03-31 08:00] VITALS: BP 138/85
[2020-03-31] MEDS: Augmentin 875mg Tab ORAL SCH (08:30)
[2020-03-31] MEDS: Docusate 100mg cap ORAL SCH (08:30)
[2020-03-31] MEDS: Miralax 17gm pkt ORAL SCH (08:31)
--- NOTE | 2020-03-31 09:45 | Pulmonology Progress Note ---
Subjective ROS Limited/Unobtainable: Yes Allergies: Coded Allergies: No Known Allergies (Unverified , 03/29/20) Subjective c/o lowed abd pain had BM x 5 yesterday WBC up to 21 fevers last night , currently subsided Objective Last 24 Hour Vital Signs Date Time Temp Pulse Resp B/P (MAP) Pulse Ox O2 Delivery O2 Flow Rate FiO2 03/31/20 08:00 98.8 109 18 138/85 (102) 95 03/31/20 04:00 99.3 110 18 114/78 (90) 96 03/31/20 00:00 97.5 95 18 123/82 (96) 95 03/30/20 21:00 Room Air 03/30/20 20:00 98.8 103 18 114/76 (89) 94 03/30/20 19:11 100.1 03/30/20 18:37 101.4 03/30/20 15:47 99.5 105 16 122/82 (95) 95 03/30/20 12:00 99.3 104 18 126/83 (97) 95 Intake and Output 03/30/20 03/31/20 19:00 07:00 Intake Total 1600 ml 1250 ml Balance 1600 ml 1250 ml Intake Oral 600 ml 250 ml IV Total 1000 ml 1000 ml # Voids 3 3 # Bowel Movements 1 3 Objective General Appearance: WD/WN, no apparent distress, alert Lines, tubes and drains: peripheral HEENT: normocephalic, atraumatic, anicteric, mucous membranes moist, PERRL Neck: supple Respiratory/Chest: chest wall non-tender, lungs clear, no respiratory distress, no accessory muscle use Cardiovascular/Chest: normal peripheral pulses, normal rate Abdomen: soft - distended , hypoactive BS Extremities: normal range of motion, non-tender, no calf tenderness, normal capillary refill Skin Exam: warm/dry 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, no motor/sensory deficits, alert, oriented x 3, responsive Musculoskeletal: normal muscle bulk Laboratory Tests 03/31/20 01:42: Urine Color Yellow, Urine Appearance Clear, Urine pH 5, Urine Specific [place] 1.025, Urine Protein 2+H, Urine Glucose (UA) Negative, Urine Ketones 1+H, Urine Blood 2+H, Urine Nitrite Negative, Urine Bilirubin Negative, Urine Urobilinogen 1H, Urine Leukocyte Esterase 1+H, Urine RBC 2-4H, Urine WBC 2-4, Urine Squamous Epithelial Cells ManyH, Urine Bacteria Few 03/31/20 04:00: White Blood Count 21.7#H, Red Blood Count 5.73H, Hemoglobin 10.2L, Hematocrit 36.4L, Mean Corpuscular Volume 64L, Mean Corpuscular Hemoglobin 17.9L, Mean Corpuscular Hemoglobin Concent 28.1L, Red Cell Distribution Width 23.4H, Platelet Count 199, Mean Platelet Volume 7.7, Neutrophils (%) (Auto) , Lymphocytes (%) (Auto) , Monocytes (%) (Auto) , Eosinophils (%) (Auto) , Basophils (%) (Auto) , Differential Total Cells Counted 100, Neutrophils % (Manual) 85H, Lymphocytes % (Manual) 7L, Monocytes % (Manual) 8, Eosinophils % (Manual) 0, Basophils % (Manual) 0, Band Neutrophils 0, Platelet Estimate Adequate, Platelet Morphology Normal, Hypochromasia 1+, Anisocytosis 3+, Schistocytes Occasional 03/31/20 06:45: Sodium Level 136, Potassium Level 3.5, Chloride Level 99, Carbon Dioxide Level 30, Anion Gap 7, Blood Urea Nitrogen 3L, Creatinine 0.7, Estimat Glomerular Brice tration Rate > 60, Glucose Level 132H, Calcium Level 8.9, Iron Level 10L, Total Iron Binding Capacity 261, Percent Iron Saturation 4L, Unsaturated Iron Binding 251, Total Bilirubin 0.5, Aspartate Amino Transf (AST/SGOT) 20, Alanine Aminotransferase (ALT/SGPT) 10L, Alkaline Phosphatase 58, Total Protein 7.6, Albumin 2.8L, Globulin 4.8, Albumin/Globulin Ratio 0.6L Current Medications Medications (Trade) Dose Ordered Sig/Tonya Route PRN Reason Start Time Stop Time Status Last Admin Dose Admin Acetaminophen (Tylenol) 500 mg Q4H PRN ORAL FEVER 03/29/20 21:45 04/28/20 21:44 03/30/20 18:41 Acetaminophen (Tylenol) 500 mg Q4H PRN ORAL Mild Pain (Pain Scale 1-3) 03/29/20 21:45 04/28/20 21:44 Acetaminophen/ Hydrocodone Bitart ([place] 10/325) 1 tab Q3H PRN ORAL Severe Pain (Pain Scale 7-10) 03/31/20 08:00 04/07/20 07:59 Acetaminophen/ Hydrocodone Bitart ([place] 5/325) 1 tab Q4H PRN ORAL Moderate Pain (Pain Scale 4-6) 03/29/20 21:45 04/05/20 21:44 Amoxicillin/ Clavulanate Potassium (Augmentin) 875 mg EVERY 12 HOURS ORAL 03/29/20 23:00 04/05/20 22:59 03/31/20 08:30 Dextrose/Lactated Ringer's 1,000 ml @ 100 mls/hr Q10H IV 03/29/20 22:30 04/28/20 22:29 03/31/20 04:36 Docusate Sodium (Colace) 100 mg TWICE A DAY ORAL 03/30/20 18:00 04/29/20 17:59 03/31/20 08:30 Hydromorphone HCl (Dilaudid) 1 mg EVERY 3 HOURS PRN IVP Mild Pain (Pain Scale 1-3) 03/30/20 08:00 04/06/20 07:59 Hydromorphone HCl (Dilaudid) 2 mg Q2H PRN IVP Severe Pain (Pain Scale 7-10) 03/30/20 08:00 04/06/20 07:59 03/31/20 08:31 Hydromorphone HCl (Dilaudid) 2 mg Q3H PRN IVP Moderate Pain (Pain Scale 4-6) 03/30/20 08:00 04/06/20 07:59 Magnesium Hydroxide (Mom) 30 ml DAILYPRN PRN ORAL Constipation 03/29/20 21:45 04/28/20 21:44 Methylnaltrexone [place] (Relistor) 12 mg QOD SUBQ 03/30/20 13:00 06/30/20 12:59 03/30/20 15:46 Ondansetron HCl (Zofran) 4 mg Q4H PRN IVP Nausea & Vomiting 03/29/20 21:45 04/28/20 21:44 Polyethylene Glycol (Miralax) 17 gm DAILY ORAL 03/30/20 22:00 04/28/20 21:59 03/30/20 21:46 Assessment/Plan Assessment/Plan ASSESSMENT abdominal pain with distention constipation possible ileus uterine fibroids, s/p recent [place] 1/12/21 anemia hypokalemia - already corrected PLAN OF CARE [facility] floor IVF KUB now - was cancelled since had BM GI follows pain management, now attempt with oral bowel regimen , - had BM x 5 constipation resolved leukocytosis up to 21, fevers last night change abx to Zosyn, BCX monitor HH with goal to keep Hgb > 7 supportive care case discussed and evaluated by supervising physician Odessa Rutherford NP, Janet NP Mar 31, 2020 09:45
[2020-03-31] MEDS: HYDROcodone/Acetamin 10/325 tab ORAL PRN ×4 (10:49→20:52)
--- NOTE | 2020-03-31 10:57 | General Progress Note ---
Subjective ROS Limited/Unobtainable: Yes Allergies: Coded Allergies: No Known Allergies (Unverified , 03/29/20) Objective Last 24 Hour Vital Signs Date Time Temp Pulse Resp B/P (MAP) Pulse Ox O2 Delivery O2 Flow Rate FiO2 03/31/20 08:00 98.8 109 18 138/85 (102) 95 03/31/20 04:00 99.3 110 18 114/78 (90) 96 03/31/20 00:00 97.5 95 18 123/82 (96) 95 03/30/20 21:00 Room Air 03/30/20 20:00 98.8 103 18 114/76 (89) 94 03/30/20 19:11 100.1 03/30/20 18:37 101.4 03/30/20 15:47 99.5 105 16 122/82 (95) 95 03/30/20 12:00 99.3 104 18 126/83 (97) 95 Intake and Output 03/30/20 03/31/20 19:00 07:00 Intake Total 1600 ml 1250 ml Balance 1600 ml 1250 ml Intake Oral 600 ml 250 ml IV Total 1000 ml 1000 ml # Voids 3 3 # Bowel Movements 1 3 Laboratory Tests 03/31/20 01:42: Urine Color Yellow, Urine Appearance Clear, Urine pH 5, Urine Specific [place] 1.025, Urine Protein 2+H, Urine Glucose (UA) Negative, Urine Ketones 1+H, Urine Blood 2+H, Urine Nitrite Negative, Urine Bilirubin Negative, Urine Urobilinogen 1H, Urine Leukocyte Esterase 1+H, Urine RBC 2-4H, Urine WBC 2-4, Urine Squamous Epithelial Cells ManyH, Urine Bacteria Few 03/31/20 04:00: White Blood Count 21.7#H, Red Blood Count 5.73H, Hemoglobin 10.2L, Hematocrit 36.4L, Mean Corpuscular Volume 64L, Mean Corpuscular Hemoglobin 17.9L, Mean Corpuscular Hemoglobin Concent 28.1L, Red Cell Distribution Width 23.4H, [place] te[place] Count 199, Mean Platelet Volume 7.7, Neutrophils (%) (Auto) , Lymphocytes (%) (Auto) , Monocytes (%) (Auto) , Eosinophils (%) (Auto) , Basophils (%) (Auto) , Differential Total Cells Counted 100, Neutrophils % (Manual) 85H, Lymphocytes % (Manual) 7L, Monocytes % (Manual) 8, Eosinophils % (Manual) 0, Basophils % (Manual) 0, Band Neutrophils 0, Platelet Estimate Adequate, Platelet Morphology Normal, Hypochromasia 1+, Anisocytosis 3+, Schistocytes Occasional 03/31/20 06:45: Sodium Level 136, Potassium Level 3.5, Chloride Level 99, Carbon Dioxide Level 30, Anion Gap 7, Blood Urea Nitrogen 3L, Creatinine 0.7, Estimat Glomerular Filtration Rate > 60, Glucose Level 132H, Calcium Level 8.9, Iron Level 10L, Total Iron Binding Capacity 261, Percent Iron Saturation 4L, Unsaturated Iron Binding 251, Total Bilirubin 0.5, Aspartate Amino Transf (AST/SGOT) 20, Alanine Aminotransferase (ALT/SGPT) 10L, Alkaline Phosphatase 58, C-Reactive Protein, Quantitative 34.1H, Total Protein 7.6, Albumin 2.8L, Globulin 4.8, Albumin/Globulin Ratio 0.6L Height (Feet): 5 Height (Inches): 5.00 Weight (Pounds): 135 General Appearance: alert EENT: normal ENT inspection Neck: supple Cardiovascular: normal rate Respiratory/Chest: decreased breath sounds Abdomen: hypoactive bowel sounds, tender Extremities: non-tender Assessment/Plan Problem List: (1) Post-op pain ICD Codes: G89.18 - Other acute postprocedural pain SNOMED: 862533866 (2) Abdominal pain ICD Codes: R10.9 - Unspecified abdominal pain SNOMED: 65686392 (3) Hypokalemia ICD Codes: E87.6 - Hypokalemia SNOMED: 01515111 (4) Constipation ICD Codes: K59.00 - Constipation, unspecified SNOMED: 74981326 (5) Anemia ICD Codes: D64.9 - Anemia, unspecified SNOMED: 148377749 (6) Hepatic cyst ICD Codes: K76.89 - Other specified diseases of liver SNOMED: 07163507 Assessment/Plan: diarrhea crampy abd pain s/p Relistor yesterday dc all laxatives iv iron monitor for BM pain control will Dayron Hameed MD Mar 31, 2020 10:56
--- NOTE | 2020-03-31 11:25 | NUR ---
CASE MANAGEMENT:REVIEW SI;POST OP PAIN. ILEUS. 101.4 110 18 138/85 94% ON RA WBC+ 21.7 H/H+ 10.2/36.4 IRON- 10 CRP+ 34.1 ALB- 2.8 IS;VENOFER IV HS ZOSYN IV Q8 NORCO PO Q3 PRN RELISTOR SQ DILAUDID IV Q2 PRN IVF LR @ 100 ML/HR MED SURG STATUS DCP;FROM HOME
[2020-03-31] MEDS ORDERED: MIRALAX17 G2 ORAL (11:26)
[2020-03-31] MEDS ORDERED: DOCUSATE SODIU250 MG ORAL (11:26)
[2020-03-31] MEDS ORDERED: IRON325 M1 PO (11:26)
[2020-03-31] MEDS ORDERED: VITAMIN C500 M1 ORAL (11:26)
[2020-03-31] MEDS ORDERED: ZOFRAN ODT8 MG ORAL (11:26)
[2020-03-31] MEDS ORDERED: PERCOCET 5-3251 EACH ORAL (11:26)
[2020-03-31 12:00] VITALS: BP 122/82
--- NOTE | 2020-03-31 13:01 | NUR ---
NURSE NOTES: Abdominal distension noted and pt said "I pooped but it is hard to pass the gas". Notified to Dr. Gomez. said he will come and check the pt.
--- NOTE | 2020-03-31 13:49 | General Surgery Progress Note ---
General Surgery-Progress Note Subjective Procedure Performed uterine fibroid embolization Symptoms: tolerating diet, voiding well, passing flatus, BM, pain decreased Objective Last 24 Hour Vital Signs Date Time Temp Pulse Resp B/P (MAP) Pulse Ox O2 Delivery O2 Flow Rate FiO2 03/31/20 12:00 99.5 107 18 122/82 (95) 96 03/31/20 09:00 Room Air 03/31/20 08:00 98.8 109 18 138/85 (102) 95 03/31/20 04:00 99.3 110 18 114/78 (90) 96 03/31/20 00:00 97.5 95 18 123/82 (96) 95 03/30/20 21:00 Room Air 03/30/20 20:00 98.8 103 18 114/76 (89) 94 03/30/20 19:11 100.1 03/30/20 18:37 101.4 03/30/20 15:47 99.5 105 16 122/82 (95) 95 I&O Intake and Output 03/30/20 03/31/20 19:00 07:00 Intake Total 1600 ml 1250 ml Balance 1600 ml 1250 ml Intake Oral 600 ml 250 ml IV Total 1000 ml 1000 ml # Voids 3 3 # Bowel Movements 1 3 Dressing: dry Wound: clean Drains: none Cardiovascular: RSR Respiratory: clear Abdomen: soft, flat, scaphoid, tenderness, present bowel sounds Extremities: no edema, no tenderness, no cyanosis Laboratory Tests Test 03/31/20 01:42 03/31/20 04:00 03/31/20 06:45 Urine Color Yellow Urine Appearance Clear Urine pH 5 (4.5-8.0) Urine Specific [place] 1.025 (1.005-1.035) Urine Protein 2+ (NEGATIVE) H Urine Glucose (UA) Negative (NEGATIVE) Urine Ketones 1+ (NEGATIVE) H Urine Blood 2+ (NEGATIVE) H Urine Nitrite Negative (NEGATIVE) Urine Bilirubin Negative (NEGATIVE) Urine Urobilinogen 1 MG/DL (0.0-1.0) H Urine Leukocyte Esterase 1+ (NEGATIVE) H Urine RBC 2-4 /HPF (0 - 2) H Urine WBC 2-4 /HPF (0 - 2) Urine Squamous Epithelial Cells Many /LPF (NONE/OCC) H Urine Bacteria Few /HPF (NONE) White Blood Count 21.7 K/UL (4.8-10.8) #H Red Blood Count 5.73 M/UL (4.20-5.40) H Hemoglobin 10.2 G/DL (12.0-16.0) L Hematocrit 36.4 % (37.0-47.0) L Mean Corpuscular Volume 64 FL (80-99) L Mean Corpuscular Hemoglobin 17.9 PG (27.0-31.0) L Mean Corpuscular Hemoglobin Concent 28.1 G/DL (32.0-36.0) L Red Cell Distribution Width 23.4 % (11.6-14.8) H Platelet Count 199 K/UL (150-450) Mean Platelet Volume 7.7 FL (6.5-10.1) Neutrophils (%) (Auto) % (45.0-75.0) Lymphocytes (%) (Auto) % (20.0-45.0) Monocytes (%) (Auto) % (1.0-10.0) Eosinophils (%) (Auto) % (0.0-3.0) Basophils (%) (Auto) % (0.0-2.0) Differential Total Cells Counted 100 Neutrophils % (Manual) 85 % (45-75) H Lymphocytes % (Manual) 7 % (20-45) L Monocytes % (Manual) 8 % (1-10) Eosinophils % (Manual) 0 % (0-3) Basophils % (Manual) 0 % (0-2) Band Neutrophils 0 % (0-8) Platelet Estimate Adequate Platelet Morphology Normal Hypochromasia 1+ Anisocytosis 3+ Schistocytes Occasional Sodium Level 136 MMOL/L (136-145) Potassium Level 3.5 MMOL/L (3.5-5.1) Chloride Level 99 MMOL/L (98-107) Carbon Dioxide Level 30 MMOL/L (21-32) Anion Gap 7 mmol/L (5-15) Blood Urea Nitrogen 3 mg/dL (7-18) L Creatinine 0.7 MG/DL (0.55-1.30) Estimat Glomerular Filtration Rate > 60 mL/min (>60) Glucose Level 132 MG/DL (74-106) H Calcium Level 8.9 MG/DL (8.5-10.1) Iron Level 10 ug/dL (50-175) L Total Iron Binding Capacity 261 ug/dL (250-450) Percent Iron Saturation 4 % (15-50) L Unsaturated Iron Binding 251 ug/dL (112-346) Total Bilirubin 0.5 MG/DL (0.2-1.0) Aspartate Amino Transf (AST/SGOT) 20 U/L (15-37) Alanine Aminotransferase (ALT/SGPT) 10 U/L (12-78) L Alkaline Phosphatase 58 U/L (46-116) C-Reactive Protein, Quantitative 34.1 mg/dL (0.00-0.90) H Total Protein 7.6 G/DL (6.4-8.2) Albumin 2.8 G/DL (3.4-5.0) L Globulin 4.8 g/dL Albumin/Globulin Ratio 0.6 (1.0-2.7) L Additional Comments leukocytosis likely secondary to post embolization syndrome. cultures pending Plan Additional Comments attempting oral analgesia, ambulate, several BM today, decreased pain. Song Goodwin MD Mar 31, 2020 13:49
[2020-03-31] MEDS: Zoysn 3.37gm in NS 100ML IVPB SCH ×2 (13:53→21:54)
[2020-03-31] MEDS ORDERED: Piperacillin/Tazobactam 2.25 GM in D5W 55 ML IV SCH (14:00)
[2020-03-31 16:00] VITALS: BP 136/89
--- NOTE | 2020-03-31 16:01 | NUR ---
NURSE NOTES: Dr. Gomez did not come yet so notified to Dr. Goodwin regarding abdominal distension. Dr. Goodwin ordered tap water enema. Noted and carried out.
--- NOTE | 2020-03-31 16:30 | NUR ---
NURSE NOTES: Tap water enema was done.
--- NOTE | 2020-03-31 17:19 | NUR ---
NURSE NOTES: Patient pooped one time but still abdominal distension noted. Notifed to Dr. Goodwin.
--- NOTE | 2020-03-31 19:00 | NUR ---
NURSE HAND-OFF: Important Events on Shift: diarrhea x3, abdominal distension noted. Patient Status: stable Diet: regular Pending Orders: n/a Pending Results/Labs:n/a Pending MD notification:n/a Latest Vital Signs: Temperature 99.2 , Pulse 106 , B/P 136 /89 , Respiratory Rate 18 , O2 SAT 95 , Room Air, O2 Flow Rate . Vital Sign Comment: stable Latest Valdez Fall Score: 35 Fall Risk: Medium Risk Safety Measures: Call light Within Reach, Bed Alarm , Side Rails Side Rails x2, Bed position Low and Locked. Fall Precautions: Yellow Socks Yellow Gown Door Sign Patient Fall Education Report given to BROOKS Russell.
--- NOTE | 2020-03-31 19:45 | NUR ---
NURSE NOTES: Received report from Marilyn GUY. Patient is awake, alert, oriented x4. On room air, breathing is even and unlabored. Complains of pain on abdomen 7/10. Bloating on lower abdomen noted. IV left AC intact and patent with no bleeding noted. IVF running as ordered. Bed low and locked. Call light within reach.
[2020-03-31 20:00] VITALS: BP 117/75
--- NOTE | 2020-03-31 20:00 | NUR ---
Abdomen x-ray was done. Patient still complains of bloating and pain.
--- NOTE | 2020-03-31 20:21 | Diagnostic Imaging Report ---
EXAM: XR Abdomen, 2 Views CLINICAL HISTORY: ABD DIST TECHNIQUE: Frontal view of the abdomen/pelvis with upright view of the abdomen. COMPARISON: 03/29/2020. FINDINGS: Lower thorax: Blunting of the right CP angle suggestive of possible small right pleural effusion. Intraperitoneal space: No free air. Gastrointestinal tract: Air is noted throughout the colon. Nonspecific bowel gas pattern. No dilation. Organs: A 7.1 x 4.7 cm calcified uterine fibroid is noted within the right hemipelvis similar to that noted on the CT study of 03/29/2020. Vicarious excretion of contrast within the gallbladder and the right upper quadrant. Displacement of bowel loops in the mid lower abdomen due to enlarged fibroid uterus. Bones/joints: Osteopenia. IMPRESSION: 1. Nonspecific bowel gas pattern. 2. Calcified uterine fibroid right hemipelvis. <MYCVCSECTION> Communications: 04/01/20 10:17 Call From Hospital will have Dr Willett call Dr Goodwin per request
[2020-03-31] MEDS: Iron Sucrose 100 MG in NS 55 ML IVPB SCH (20:35)
[2020-04-01] VITALS: BP 120/77
[2020-04-01] MEDS: HYDROcodone/Acetamin 10/325 tab ORAL PRN ×7 (00:22→23:32)
[2020-04-01] MEDS: Dextrose 5%/Lactated Ringer's 1,000 ML IV SCH (00:30)
--- NOTE | 2020-04-01 00:30 | NUR ---
NURSE NOTES: D5/LR bag was not in the cubbie. Charge nurse called all other units, but couldn't find one. According to charge nurse, I will administer LR instead. There is still fluid left on the previous bag. Will administer when the old one is empty.
[2020-04-01 04:00] VITALS: BP 125/84
[2020-04-01] MEDS: Zoysn 3.37gm in NS 100ML IVPB SCH (06:25)
--- NOTE | 2020-04-01 07:23 | NUR ---
NURSE HAND-OFF: Important Events on Shift: Pain management, temp management, D5LR not given Patient Status: Stable Diet: Regular Pending Orders: [] Pending Results/Labs:[] Pending MD notification:[] Latest Vital Signs: Temperature 99.2 , Pulse 104 , B/P 125 /84 , Respiratory Rate 18 , O2 SAT 95 , Room Air, O2 Flow Rate . Vital Sign Comment: VS stable Latest Valdez Fall Score: 35 Fall Risk: Medium Risk Safety Measures: Call light Within Reach, Bed Alarm , Side Rails Side Rails x2, Bed position Low and Locked. Fall Precautions: Yellow Socks Yellow Gown Door Sign Patient Fall Education Report given to Aretha GUY.
[2020-04-01 07:28] LABS: MEAN CORPUSCULAR VOLUME 63 FL (80-99); PLATELET COUNT 221 K/UL (150-450); RED BLOOD COUNT 5.56 M/UL (4.20-5.40); RED CELL DISTRIBUTION WIDTH 23.1 % (11.6-14.8); WHITE BLOOD COUNT 20.9 K/UL (4.8-10.8)
--- NOTE | 2020-04-01 07:30 | NUR ---
NURSE NOTES: Patient is in bed asleep. Stable. Breathing is even and unlabored. Patient is in bed in locked and lowest position with call light within reach. All safety measures provided. Will continue to monitor.
[2020-04-01 07:46] LABS: ALANINE AMINOTRANSFERASE 10 U/L (12-78); ALBUMIN 2.4 G/DL (3.4-5.0); ALBUMIN/GLOBULIN RATIO 0.5 (1.0-2.7); ALKALINE PHOSPHATASE 72 U/L (46-116); ANION GAP 4 mmol/L (5-15); ASPARTATE AMINO TRANSFERASE 29 U/L (15-37); BILIRUBIN,TOTAL 0.7 MG/DL (0.2-1.0); BLOOD UREA NITROGEN 4 mg/dL (7-18); CALCIUM 8.8 MG/DL (8.5-10.1); CARBON DIOXIDE 32 MMOL/L (21-32); CHLORIDE 100 MMOL/L (98-107); CREATININE 0.7 MG/DL (0.55-1.30); POTASSIUM 3.2 MMOL/L (3.5-5.1); SODIUM 136 MMOL/L (136-145)
[2020-04-01 08:00] VITALS: BP 115/71
[2020-04-01] MEDS ORDERED: D5 1/2NS 1,000 ML IV SCH (08:00)
--- NOTE | 2020-04-01 08:20 | Pulmonology Progress Note ---
Subjective ROS Limited/Unobtainable: Yes Allergies: Coded Allergies: No Known Allergies (Unverified , 03/29/20) Subjective low grade fevers over night and early am, currently afebrile, still with leucocytosis WBC 20.9 K-3.2 c/o gas pain , reported episode of vag bleeding/spotting, -> Hgb at baseline having BM, tolerates diet, poor appetite Objective Last 24 Hour Vital Signs Date Time Temp Pulse Resp B/P (MAP) Pulse Ox O2 Delivery O2 Flow Rate FiO2 04/01/20 04:00 99.2 104 18 125/84 (98) 95 04/01/20 00:00 100.0 107 18 120/77 (91) 95 03/31/20 21:00 Room Air 03/31/20 20:00 100.3 101 18 117/75 (89) 98 03/31/20 16:00 99.2 106 18 136/89 (105) 95 03/31/20 12:00 99.5 107 18 122/82 (95) 96 03/31/20 09:00 Room Air l Intake and Output 03/31/20 04/01/20 19:00 07:00 Intake Total 510 ml 1650 ml Balance 510 ml 1650 ml Intake Oral 400 ml 480 ml IV Total 110 ml 1170 ml # Voids 3 4 # Bowel Movements 3 2 Objective General Appearance: WD/WN, no apparent distress, alert Lines, tubes and drains: peripheral HEENT: normocephalic, atraumatic, anicteric, mucous membranes moist, PERRL Neck: supple Respiratory/Chest: chest wall non-tender, lungs clear, no respiratory distress, no accessory muscle use Cardiovascular/Chest: normal peripheral pulses, normal rate Abdomen: soft - distended , hypoactive BS Extremities: normal range of motion, non-tender, no calf tenderness, normal capillary refill Skin Exam: warm/dry Neurologic: prescription eyeglass maker II-XII grossly normal, no motor/sensory deficits, alert, oriented x 3, responsive Musculoskeletal: normal muscle bulk Microbiology Date/Time Source Procedure Growth Status 03/31/20 01:42 Urine,Clean Catch Urine Culture - Preliminary NO GROWTH Resulted Laboratory Tests 04/01/20 06:50: White Blood Count 20.9H, Red Blood Count 5.56H, Hemoglobin 10.0L, Hematocrit 35.0L, Mean Corpuscular Volume 63L, Mean Corpuscular Hemoglobin 18.0L, Mean Corpuscular Hemoglobin Concent 28.6L, Red Cell Distribution Width 23.1H, Platelet Count 221, Mean Platelet Volume 10.2H, Neutrophils (%) (Auto) , Lymphocytes (%) (Auto) , Monocytes (%) (Auto) , Eosinophils (%) (Auto) , Basophils (%) (Auto) , Neutrophils % (Manual) [Pending], Lymphocytes % (Manual) [Pending], Platelet Estimate [Pending], Platelet Morphology [Pending], Sodium Level 136, Potassium Level 3.2L, Chloride Level 100, Carbon Dioxide Level 32, Anion Gap 4L, Blood Urea Nitrogen 4L, Creatinine 0.7, Estimat Glomerular Filtration Rate > 60, Glucose Level 105, Calcium Level 8.8, Total Bilirubin 0.7, Aspartate Amino Transf (AST/SGOT) 29, Alanine Aminotransferase (ALT/SGPT) 10L, Alkaline Phosphatase 72, Total Protein 7.0, Albumin 2.4L, Globulin 4.6, Albumin/Globulin Ratio 0.5L Current Medications Medications (Trade) Dose Ordered Sig/Tonya Route PRN Reason Start Time Stop Time Status Last Admin Dose Admin Acetaminophen (Tylenol) 500 mg Q4H PRN ORAL FEVER 03/29/20 21:45 04/28/20 21:44 03/30/20 18:41 Acetaminophen (Tylenol) 500 mg Q4H PRN ORAL Mild Pain (Pain Scale 1-3) 03/29/20 21:45 04/28/20 21:44 Acetaminophen/ Hydrocodone Bitart ([place] 10/325) 1 tab Q3H PRN ORAL Severe Pain (Pain Scale 7-10) 03/31/20 08:00 04/07/20 07:59 04/01/20 06:44 Acetaminophen/ Hydrocodone Bitart ([place] 5/325) 1 tab Q4H PRN ORAL Moderate Pain (Pain Scale 4-6) 03/29/20 21:45 04/05/20 21:44 Dextrose/Sodium Chloride 1,000 ml @ 100 mls/hr Q10H IV 04/01/20 08:00 05/01/20 07:59 Hydromorphone HCl (Dilaudid) 1 mg EVERY 3 HOURS PRN IVP Mild Pain (Pain Scale 1-3) 03/30/20 08:00 04/06/20 07:59 Hydromorphone HCl (Dilaudid) 2 mg Q2H PRN IVP Severe Pain (Pain Scale 7-10) 03/30/20 08:00 04/06/20 07:59 03/31/20 08:31 Hydromorphone HCl (Dilaudid) 2 mg Q3H PRN IVP Moderate Pain (Pain Scale 4-6) 03/30/20 08:00 04/06/20 07:59 Iron Sucrose 100 mg/Sodium Chloride 60 ml @ 240 mls/hr BEDTIME IVPB 03/31/20 21:00 04/04/20 21:14 03/31/20 20:35 Magnesium Hydroxide (Mom) 30 ml DAILYPRN PRN ORAL Constipation 03/29/20 21:45 04/28/20 21:44 Methylnaltrexone [place] (Relistor) 12 mg QOD SUBQ 03/30/20 13:00 06/30/20 12:59 03/30/20 15:46 Ondansetron HCl (Zofran) 4 mg Q4H PRN IVP Nausea & Vomiting 03/29/20 21:45 04/28/20 21:44 Piperacillin Sod/ Tazobactam Sod 3.375 gm/Sodium Chloride 110 ml @ 27.5 mls/hr EVERY 8 HOURS IVPB 03/31/20 14:00 04/05/20 13:59 04/01/20 06:25 Assessment/Plan Assessment/Plan ASSESSMENT abdominal pain with distention constipation possible ileus leukocytosis uterine fibroids, s/p recent UAE 03/28/20 anemia hypokalemia - PLAN OF CARE MS floor IVF KUB 03/31 UCX 03/31 NGT + low grade fevers and leukocytosis IV Zosyn empirically BCX pending GI follows pain management, bowel regimen , constipation resolved replace K, check K and Mg in am will add Simethicone for gas pain monitor HH with goal to keep Hgb > 7 -remains at baseline on IV Venofer supportive care case discussed and evaluated by supervising physician Odessa Rutherford NP, Janet NP Apr 01, 2020 08:20
[2020-04-01] MEDS ORDERED: D5 1/2NS w/KCL 10meq 1,000 ML IV SCH (08:30)
[2020-04-01] MEDS ORDERED: Simethicone 80mg tab ORAL PRN (08:30)
[2020-04-01] MEDS: D5 1/2NS w/KCl 20mEq 1,000 ML IV SCH ×2 (09:00→18:25)
[2020-04-01] MEDS ORDERED: Relistor 12mg/0.6ml Vial SUBQ SCH (09:00)
[2020-04-01] MEDS: Relistor 12mg/0.6ml Vial SUBQ SCH (09:00)
--- NOTE | 2020-04-01 10:45 | NUR ---
NURSE NOTES: Received orders to insert rectal tube by Dr. Ramirez. Orders read back and entered. Addendum: 04/01/20 at 1119 by AMINAH HUNTER RN Dr. Johnson gave instructions to hold off on rectal tube at this time.
[2020-04-01] MEDS ORDERED: Gastrograffin 30ml ORAL PRN (11:45)
[2020-04-01] MEDS ORDERED: Omnipaque-300 100ml vial INJ PRN (11:45)
--- NOTE | 2020-04-01 11:53 | Consultation ---
History of Present Illness General Date patient seen: Apr 01, 2020 Reason for Hospitalization: General Complaint Present Illness HPI This is a very pleasant 49-year-old female with known history of large uterine fibroids and uterus who is status post embolization presents [facility] with pain fever leukocytosis. During admission has become more distended complaining abdominal tenderness. Surgery called to eval and assist with care. Patient seen, patient evaluate, chart reviewed. On admission CT reviewed no acute process identified other than known history. Patient states he she is passing flatus and having loose bowel movements intermittently. Currently no nausea vomiting but states on admission did have significant nausea vomiting which is since resolved. Pain is cramping 6 out of 10 pain generalized abdomen pain is cramping 6 out of 10 pain generalized abdomen. States she feels much more bloated than prior and her baseline is now what it feels like currently Allergies: Coded Allergies: No Known Allergies (Unverified , 03/29/20) COVID-19 Screening Contact w/high risk pt: No Experienced COVID-19 symptoms?: No Medication History Scheduled Ascorbic Acid* (Vitamin C*), 500 MG ORAL TWICE A DAY, (Reported) Docusate Sodium* (Docusate Sodium*), 250 MG ORAL TWICE A DAY, (Reported) Ferrous Sulfate (Iron), 325 MG PO BID, (Reported) Polyethylene Glycol 3350* (Miralax*), 17 GM ORAL DAILY, (Reported) Scheduled PRN Ondansetron Odt* (Zofran Odt*), 4 MG ORAL Q6H PRN for Nausea & Vomiting, (Reported) Oxycodone/Acetaminophen 5-325* (Percocet 5-325 Mg Tablet*), 1 TAB ORAL Q3HR PRN for For Pain, (Reported) Patient History History Provided By: Patient, Medical Record, PMD Healthcare decision maker Resuscitation status Advanced Directive on File Past Medical/Surgical History Past Medical/Surgical History: (1) Hepatic cyst (2) Anemia (3) Ileus (4) Constipation (5) Hypokalemia (6) Abdominal pain (7) Post-op pain Review of Systems Review of Symptoms General ROS: no weight loss or fever Psychological ROS: no depression or mood changes, no memory loss Ophthalmic ROS: no visual changes or eye irritation ENT ROS: no nasal congestion, hearing loss, dizziness Allergy and Immunology ROS: no allergic symptoms or urticaria Hematological and Lymphatic ROS: no swollen glands, unusual bleeding or bruising Endocrine ROS: no polyuria, polydipsia, weight changes, temperature intolerance Respiratory ROS: no cough, shortness of breath, or wheezing Cardiovascular ROS: no chest pain or dyspnea on exertion Gastrointestinal ROS: ++ abdominal pain, bright red blood in stool. Musculoskeletal ROS: no myalgias or arthralgias Neurological ROS: no TIA or stroke symptoms Dermatological ROS: no new or changing skin lesions, rashes or pruritis Physical Exam Physical Exam General appearance: alert, cooperative, no distress, appears stated age Head: Normocephalic, without obvious abnormality, atraumatic Eyes: conjunctivae/corneas clear. PERRL, EOM's intact. Fundi benign Throat: Lips, mucosa, and tongue normal. Teeth and gums normal Neck: supple, symmetrical, trachea midline, no adenopathy, thyroid: not enlarged, symmetric, no tenderness/mass/nodules, no carotid bruit and no JVD Lungs: clear to auscultation bilaterally Heart: regular rate and rhythm, S1, S2 normal, no murmur, click, rub or gallop Abdomen: soft, tender general, distended, large uterus. Bowel sounds normal. No masses, no organomegaly Extremities: extremities normal, atraumatic, no cyanosis or edema Pulses: 2+ and symmetric Skin: Skin color, texture, turgor normal. No rashes or lesions Neurologic: Grossly normal Last 24 Hour Vital Signs Date Time Temp Pulse Resp B/P (MAP) Pulse Ox O2 Delivery O2 Flow Rate FiO2 04/01/20 09:00 Room Air 04/01/20 08:00 99.0 100 18 115/71 (86) 98 04/01/20 04:00 99.2 104 18 125/84 (98) 95 04/01/20 00:00 100.0 107 18 120/77 (91) 95 03/31/20 21:00 Room Air 03/31/20 20:00 100.3 101 18 117/75 (89) 98 03/31/20 16:00 99.2 106 18 136/89 (105) 95 03/31/20 12:00 99.5 107 18 122/82 (95) 96 Intake and Output 03/31/20 04/01/20 19:00 07:00 Intake Total 510 ml 1650 ml Balance 510 ml 1650 ml Intake Oral 400 ml 480 ml IV Total 110 ml 1170 ml # Voids 3 4 # Bowel Movements 3 2 Laboratory Tests Test 04/01/20 06:50 White Blood Count 20.9 K/UL (4.8-10.8) H Red Blood Count 5.56 M/UL (4.20-5.40) H Hemoglobin 10.0 G/DL (12.0-16.0) L Hematocrit 35.0 % (37.0-47.0) L Mean Corpuscular Volume 63 FL (80-99) L Mean Corpuscular Hemoglobin 18.0 PG (27.0-31.0) L Mean Corpuscular Hemoglobin Concent 28.6 G/DL (32.0-36.0) L Red Cell Distribution Width 23.1 % (11.6-14.8) H Platelet Count 221 K/UL (150-450) Mean Platelet Volume 10.2 FL (6.5-10.1) H Neutrophils (%) (Auto) % (45.0-75.0) Lymphocytes (%) (Auto) % (20.0-45.0) Monocytes (%) (Auto) % (1.0-10.0) Eosinophils (%) (Auto) % (0.0-3.0) Basophils (%) (Auto) % (0.0-2.0) Differential Total Cells Counted 100 Neutrophils % (Manual) 88 % (45-75) H Lymphocytes % (Manual) 3 % (20-45) L Monocytes % (Manual) 9 % (1-10) Eosinophils % (Manual) 0 % (0-3) Basophils % (Manual) 0 % (0-2) Band Neutrophils 0 % (0-8) Platelet Estimate Adequate Platelet Morphology Normal Polychromasia 1+ Hypochromasia 1+ Anisocytosis 3+ Microcytosis 2+ Schistocytes Occasional Sodium Level 136 MMOL/L (136-145) Potassium Level 3.2 MMOL/L (3.5-5.1) L Chloride Level 100 MMOL/L (98-107) Carbon Dioxide Level 32 MMOL/L (21-32) Anion Gap 4 mmol/L (5-15) L Blood Urea Nitrogen 4 mg/dL (7-18) L Creatinine 0.7 MG/DL (0.55-1.30) Estimat Glomerular Filtration Rate > 60 mL/min (>60) Glucose Level 105 MG/DL (74-106) Calcium Level 8.8 MG/DL (8.5-10.1) Total Bilirubin 0.7 MG/DL (0.2-1.0) Aspartate Amino Transf (AST/SGOT) 29 U/L (15-37) Alanine Aminotransferase (ALT/SGPT) 10 U/L (12-78) L Alkaline Phosphatase 72 U/L (46-116) Total Protein 7.0 G/DL (6.4-8.2) Albumin 2.4 G/DL (3.4-5.0) L Globulin 4.6 g/dL Albumin/Globulin Ratio 0.5 (1.0-2.7) L Height (Feet): 5 Height (Inches): 5.00 Weight (Pounds): 135 Medications Current Medications Medications (Trade) Dose Ordered Sig/Tonya Route PRN Reason Start Time Stop Time Status Last Admin Dose Admin Acetaminophen (Tylenol) 500 mg Q4H PRN ORAL FEVER 03/29/20 21:45 04/28/20 21:44 03/30/20 18:41 Acetaminophen (Tylenol) 500 mg Q4H PRN ORAL Mild Pain (Pain Scale 1-3) 03/29/20 21:45 04/28/20 21:44 Acetaminophen/ Hydrocodone Bitart ([place] 10/325) 1 tab Q3H PRN ORAL Severe Pain (Pain Scale 7-10) 03/31/20 08:00 04/07/20 07:59 04/01/20 06:44 Acetaminophen/ Hydrocodone Bitart ([place] 5/325) 1 tab Q4H PRN ORAL Moderate Pain (Pain Scale 4-6) 03/29/20 21:45 04/05/20 21:44 Barium Sulfate (Readi-Cat 2) 450 ml NOW PRN ORAL Radiology Procedure 04/01/20 11:45 04/03/20 11:44 Barium Sulfate (Readi-Cat 2) 450 ml NOW PRN ORAL Radiology Procedure 04/01/20 11:45 04/03/20 11:44 Dextrose/ Electrolytes 1,000 ml @ 100 mls/hr Q10H IV 04/01/20 09:00 05/01/20 08:59 04/01/20 09:00 Diatrizoate Meglum/ Diatrizoate Sod (Gastrografin) 30 ml NOW PRN ORAL Radiology Procedure 04/01/20 11:45 04/03/20 11:44 Hydromorphone HCl (Dilaudid) 1 mg EVERY 3 HOURS PRN IVP Mild Pain (Pain Scale 1-3) 03/30/20 08:00 04/06/20 07:59 Hydromorphone HCl (Dilaudid) 2 mg Q2H PRN IVP Severe Pain (Pain Scale 7-10) 03/30/20 08:00 04/06/20 07:59 03/31/20 08:31 Hydromorphone HCl (Dilaudid) 2 mg Q3H PRN IVP Moderate Pain (Pain Scale 4-6) 03/30/20 08:00 04/06/20 07:59 Iohexol (OMNIPAQUE-300 100ml) 100 ml NOW PRN INJ Radiology Procedure 04/01/20 11:45 04/03/20 11:44 Iron Sucrose 100 mg/Sodium Chloride 60 ml @ 240 mls/hr BEDTIME IVPB 03/31/20 21:00 04/04/20 21:14 03/31/20 20:35 Magnesium Hydroxide (Mom) 30 ml DAILYPRN PRN ORAL Constipation 03/29/20 21:45 04/28/20 21:44 Methylnaltrexone [place] (Relistor) 12 mg QOD SUBQ 03/30/20 13:00 06/30/20 12:59 04/01/20 09:00 Ondansetron HCl (Zofran) 4 mg Q4H PRN IVP Nausea & Vomiting 03/29/20 21:45 04/28/20 21:44 Piperacillin Sod/ Tazobactam Sod 3.375 gm/Sodium Chloride 110 ml @ 27.5 mls/hr EVERY 8 HOURS IVPB 03/31/20 14:00 04/05/20 13:59 04/01/20 06:25 Simethicone (Mylicon) 80 mg QIDPRN PRN ORAL gas pain 04/01/20 08:30 06/30/20 08:29 Assessment/Plan Problem List: (1) Hepatic cyst ICD Codes: K76.89 - Other specified diseases of liver SNOMED: 19910161 (2) Anemia ICD Codes: D64.9 - Anemia, unspecified SNOMED: 662264930 (3) Constipation ICD Codes: K59.00 - Constipation, unspecified SNOMED: 45774079 (4) Hypokalemia ICD Codes: E87.6 - Hypokalemia SNOMED: 16437230 (5) Abdominal pain Assessment & Plan: 49-year-old female with abdominal pain distention resolved nausea vomiting and intermittent diarrhea. On examination she is fairly distended and uncomfortable on palpation all quadrants. No peritonitis. Febrile leukocytosis abnormal labs. Known history of fibroids. Status post embolization Patient's prior CT was reviewed as well as her KUB. No process noted at that time the patient states that she is actually been feeling more distended and uncomfortable. Given these findings and the recent changes a repeat CT is indicated and sylvia mmended. I discussed this with the patient and obtained consent from her. I explained to her the rationale the reasoning. Need to ensure no acute process and given her examination this is definitely concerning for potentially something. N.p.o. IV fluids hold on NG tube. We will follow with recommendations of imaging available we will follow with serial abdominal examinations thank you for let me to participate in patient's care ABDOMEN: Liver: Small right hepatic cyst. Gallbladder and bile ducts: Unremarkable. No calcified stones. Pancreas: Unremarkable. Spleen: Unremarkable. Adrenals: Unremarkable. Kidneys and ureters: Unremarkable. No hydronephrosis. Stomach and bowel: Moderate colonic stool/air which may be ileus/constipation. No mechanical bowel obstruction. No diverticulitis. PELVIS: Appendix: No findings to suggest acute appendicitis. Bladder: Unremarkable. Reproductive: Large uterine fibroids. ABDOMEN and PELVIS: Intraperitoneal space: No free air. Bones/joints: No acute fracture. Soft tissues: Unremarkable. Vasculature: Unremarkable. Lymph nodes: Unremarkable. IMPRESSION: 1. Moderate colonic stool/air which may be ileus/constipation. No mechanical bowel obstruction. No diverticulitis. 2. Large uterine fibroids. ICD Codes: R10.9 - Unspecified abdominal pain SNOMED: 82638759 (6) Post-op pain ICD Codes: G89.18 - Other acute postprocedural pain SNOMED: 779758096 (7) Ileus ICD Codes: K56.7 - Ileus, unspecified SNOMED: 010371193 Justin Johnson Apr 01, 2020 11:53
[2020-04-01 12:00] VITALS: BP 137/91
--- NOTE | 2020-04-01 13:03 | NUR ---
NURSE NOTES: Made rounds with Dr. Goodwin. MD encouraged patient to start drinking oral contrast, patient does not want to drink contrast at this time. Patient aware of risks and benefits, will continue plan of care.
--- NOTE | 2020-04-01 15:18 | NUR ---
NURSE NOTES: patient taken to CT.
--- NOTE | 2020-04-01 15:40 | NUR ---
NURSE NOTES: Patient arrived from CT. Patient is passing gas and stated that she feels a little bit better.
[2020-04-01 16:00] VITALS: BP 121/74
--- NOTE | 2020-04-01 16:31 | Diagnostic Imaging Report ---
EXAM: CT Abdomen and Pelvis With Intravenous Contrast CLINICAL HISTORY: ABD PAIN. Status post uterine fibroid embolization TECHNIQUE: Axial computed tomography images of the abdomen and pelvis with intravenous contrast. CTDI is 7 mGy and DLP is 332.1 mGy-cm. One or more of the following dose reduction techniques were used: automated exposure control, adjustment of the mA and/or kV according to patient size, use of iterative reconstruction technique. COMPARISON: 03/29/19. FINDINGS: Small bilateral pleural effusions have developed in the interval. Associated compressive atelectasis. Difficult to exclude coexisting infectious infiltrate. Redemonstrated right lobe hepatic cyst. Vicarious biliary excretion of contrast with diffusely opacified gallbladder lumen. No pericholecystic inflammatory change. No biliary ductal dilation. No evidence of pancreatitis. Left renal cysts. No hydronephrosis. Spleen and adrenal glands are unremarkable. The uterus is again noted to be markedly distended due to multiple solid masses, some of which are calcified. The largest of these in the central uterus again measures 9 cm. Linear gas within several fibroids, consistent with necrosis related to recent embolization. Free pelvic fluid has slightly increased in the interval, now small-moderate volume. Gaseous distention of colon proximal to its passage between the left pelvic sidewall and the enlarged uterus. Suspect a degree of partial obstruction. No perforation. No SBO. Appendix is at the upper limits of normal for size, but tapers distally, and not grossly inflamed. Small, nonspecific retroperitoneal lymph nodes. No abdominal aortic aneurysm. No acute fracture. IMPRESSION: Redemonstrated uterine distention by multiple masses, presumably fibroids. Evidence of necrosis related to recent embolization. Slight increase in small-moderate free pelvic fluid. Decreased colonic stool burden, though still with gaseous distention of proximal colon. No bowel thickening. No perforation. Development of small pleural effusions and increasing basilar atelectasis. Incidental findings as above. <MYCVCSECTION> Communications: 04/01/20 16:[address] Goodwin on 04/01 16:22 (-08:00)
--- NOTE | 2020-04-01 19:22 | NUR ---
NURSE HAND-OFF: Important Events on Shift:pain management, ct Patient Status: stable Diet: npo Pending Orders: n/a Pending Results/Labs:n/a Pending MD notification:n/a Latest Vital Signs: Temperature 97.3 , Pulse 110 , B/P 121 /74 , Respiratory Rate 18 , O2 SAT 95 , Room Air, O2 Flow Rate . Vital Sign Comment: n/a Latest Valdez Fall Score: 35 Fall Risk: Medium Risk Safety Measures: Call light Within Reach, Bed Alarm , Side Rails Side Rails x2, Bed position Low and Locked. Fall Precautions: Yellow Socks Yellow Gown Door Sign Patient Fall Education Report given to Ana GUY.
[2020-04-01 20:00] VITALS: BP 133/85
[2020-04-01] MEDS: Iron Sucrose 100 MG in NS 55 ML IVPB SCH (20:20)
--- NOTE | 2020-04-01 20:35 | NUR ---
NURSES NOTE: Received report from BROOKS Carias. Rounds completed. Pt in bed, A/OX4, states pain is 2 or 3 out of 10 at this time. Offered Tylenol 500mg for mild pain. Will medicate accordingly. No outward s/s of distress noted. Breathing pattern is even and unlabored on RA. IV L AC intact. All due medications will be administered. Bed at lowest level, call light within reach. Pt will continue to be monitored.
--- NOTE | 2020-04-01 20:55 | General Progress Note ---
Subjective Allergies: Coded Allergies: No Known Allergies (Unverified , 03/29/20) Subjective Above noted c/o severe abdominal distention and pain rising WBC surgery comments noted d/w Dr Ramirez c/o vaginal bleeding small loose BM T max 100.3 Objective Last 24 Hour Vital Signs Date Time Temp Pulse Resp B/P (MAP) Pulse Ox O2 Delivery O2 Flow Rate FiO2 04/01/20 16:00 97.3 110 18 121/74 (90) 95 04/01/20 12:00 98.9 102 18 137/91 (106) 96 04/01/20 09:00 Room Air 04/01/20 08:00 99.0 100 18 115/71 (86) 98 04/01/20 04:00 99.2 104 18 125/84 (98) 95 04/01/20 00:00 100.0 107 18 120/77 (91) 95 03/31/20 21:00 Room Air Intake and Output 03/31/20 04/01/20 19:00 07:00 Intake Total 510 ml 1650 ml Balance 510 ml 1650 ml Intake Oral 400 ml 480 ml IV Total 110 ml 1170 ml # Voids 3 4 # Bowel Movements 3 2 Laboratory Tests 04/01/20 06:50: White Blood Count 20.9H, Red Blood Count 5.56H, Hemoglobin 10.0L, Hematocrit 35.0L, Mean Corpuscular Volume 63L, Mean Corpuscular Hemoglobin 18.0L, Mean Corpuscular Hemoglobin Concent 28.6L, Red Cell Distribution Width 23.1H, Platelet Count 221, Mean Platelet Volume 10.2H, Neutrophils (%) (Auto) , Lymphocytes (%) (Auto) , Monocytes (%) (Auto) , Eosinophils (%) (Auto) , Basophils (%) (Auto) , Differential Total Cells Counted 100, Neutrophils % (Manual) 88H, Lymphocytes % (Manual) 3L, Monocytes % (Manual) 9, Eosinophils % (Manual) 0, Basophils % (Manual) 0, Band Neutrophils 0, Platelet Estimate Adequate, Platelet Morphology Normal, Polychromasia 1+, Hypochromasia 1+, Anisocytosis 3+, Microcytosis 2+, Schistocytes Occasional, Sodium Level 136, Potassium Level 3.2L, Chloride Level 100, Carbon Dioxide Level 32, Anion Gap 4L, Blood Urea Nitrogen 4L, Creatinine 0.7, Estimat Glomerular Filtration Rate > 60, Glucose Level 105, Calcium Level 8.8, Total Bilirubin 0.7, Aspartate Amino Transf (AST/SGOT) 29, Alanine Aminotransferase (ALT/SGPT) 10L, Alkaline Phosphatase 72, Total Protein 7.0, Albumin 2.4L, Globulin 4.6, Albumin/Globulin Ratio 0.5L Height (Feet): 5 Height (Inches): 5.00 Weight (Pounds): 135 Objective WDWN NCAT supple CTA RR abd markedk distended and tympanitic, diffusely TTP, some guarding, (+) suprapubic large TTP mass no edema Assessment/Plan Assessment/Plan: Assessment - s/p UAE - marked abd distention - no perforation or abscess on repeat CT - Leucocytosis/Temp, due to necrosis Recommendation - NPO / IVF - close observation - ambulate - abx, if indicated, per TRAINING OFFICER - follow labs Scarlett De La Torre MD Apr 01, 2020 20:55
[2020-04-02] VITALS: BP 129/85
[2020-04-02 04:00] VITALS: BP 148/90
[2020-04-02] MEDS: D5 1/2NS w/KCl 20mEq 1,000 ML IV SCH ×3 (05:00→18:16)
[2020-04-02] MEDS: HYDROcodone/Acetamin 10/325 tab ORAL PRN ×2 (06:11→12:25)
[2020-04-02 06:57] LABS: BASOPHILS % (AUTO) 0.7 % (0.0-2.0); EOSINOPHILS % (AUTO) 0.3 % (0.0-3.0); HEMATOCRIT 33.9 % (37.0-47.0); HEMOGLOBIN 9.7 G/DL (12.0-16.0); LYMPHOCYTES % (AUTO) 8.2 % (20.0-45.0); MEAN CORPUSCULAR VOLUME 63 FL (80-99); MONOCYTES % (AUTO) 6.8 % (1.0-10.0); PLATELET COUNT 224 K/UL (150-450); RED BLOOD COUNT 5.39 M/UL (4.20-5.40); RED CELL DISTRIBUTION WIDTH 23.3 % (11.6-14.8)
[2020-04-02 06:59] LABS: INR 1.2 (0.9-1.1)
[2020-04-02 07:31] LABS: ALANINE AMINOTRANSFERASE 11 U/L (12-78); ALBUMIN 2.2 G/DL (3.4-5.0); ALBUMIN/GLOBULIN RATIO 0.4 (1.0-2.7); ALKALINE PHOSPHATASE 87 U/L (46-116); ANION GAP 4 mmol/L (5-15); ASPARTATE AMINO TRANSFERASE 34 U/L (15-37); BILIRUBIN,TOTAL 0.4 MG/DL (0.2-1.0); BLOOD UREA NITROGEN 4 mg/dL (7-18); CALCIUM 8.6 MG/DL (8.5-10.1); CARBON DIOXIDE 31 MMOL/L (21-32); CHLORIDE 100 MMOL/L (98-107); CREATININE 0.7 MG/DL (0.55-1.30); POTASSIUM 3.1 MMOL/L (3.5-5.1); SODIUM 135 MMOL/L (136-145)
[2020-04-02 08:00] VITALS: BP 130/72
--- NOTE | 2020-04-02 08:04 | NUR ---
NURSE HAND-OFF: Important Events on Shift:[Pt received Atkins 10-325mg x2] Patient Status: [STABLE] Diet: [NPO] Pending Orders: [N/A] Pending Results/Labs:[AM LABS STILL PENDING- ENDORSED TO AM SHIFT TO F/U ON OUTCOMES ] Pending MD notification:[N/A] Latest Vital Signs: Temperature 98.5 , Pulse 101 , B/P 148 /90 , Respiratory Rate 18 , O2 SAT 95 , Room Air, O2 Flow Rate . Vital Sign Comment: [WNL- Afebrile] Latest Valdez Fall Score: 35 Fall Risk: Medium Risk Safety Measures: Call light Within Reach, Bed Alarm , Side Rails Side Rails x2, Bed position Low and Locked. Fall Precautions: Yellow Socks Yellow Gown Door Sign Patient Fall Education Report given to [BROOKS DAS].
--- NOTE | 2020-04-02 08:10 | NUR ---
NURSE NOTES: Received patient from [place]. Patient is in bed,awake, alert and orientedx4. Denies pain @ this time. Abdomen is still distended with hypoactive bowel sounds but patient passes gas and had bowel movement this morning. No active bleeding but spotting per patient. Patient is able to ambulate without pain or discomfort. IV is intact, IVF is running. No s/s of infiltration. Bed is in lowest position and locked. Call light and personnel items within reach. Patient denies nausea or vomiting. Will continue plan of care.
--- NOTE | 2020-04-02 08:34 | Pulmonology Progress Note ---
Subjective ROS Limited/Unobtainable: Yes Allergies: Coded Allergies: No Known Allergies (Unverified , 03/29/20) Subjective no fevers WBC trending down - 17 K-3.[address] A/P 04/01 which showed necrosis 2/2 recent procedure and decreased stool burden, Objective Last 24 Hour Vital Signs Date Time Temp Pulse Resp B/P (MAP) Pulse Ox O2 Delivery O2 Flow Rate FiO2 04/02/20 04:00 98.5 101 18 148/90 (109) 95 04/02/20 00:00 98.7 91 18 129/85 (100) 92 04/01/20 21:00 Room Air 04/01/20 20:00 99.2 107 17 133/85 (101) 94 04/01/20 16:00 97.3 110 18 121/74 (90) 95 04/01/20 12:00 98.9 102 18 137/91 (106) 96 04/01/20 09:00 Room Air Intake and Output 04/01/20 04/02/20 19:00 07:00 # Voids 2 # Bowel Movements 2 1 Objective General Appearance: WD/WN, no apparent distress, alert Lines, tubes and drains: peripheral HEENT: normocephalic, atraumatic, anicteric, mucous membranes moist, PERRL Neck: supple Respiratory/Chest: chest wall non-tender, lungs clear, no respiratory distress, no accessory muscle use Cardiovascular/Chest: normal peripheral pulses, normal rate Abdomen: soft - distended , hypoactive BS Extremities: normal range of motion, non-tender, no calf tenderness, normal capillary refill Skin Exam: warm/dry 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: 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 grossly normal, no motor/sensory deficits, alert, orien nathaniel x 3, responsive Musculoskeletal: normal muscle bulk Microbiology Date/Time Source Procedure Growth Status 03/31/20 06:45 Blood Blood Culture - Preliminary NO GROWTH AFTER 24 HOURS Resulted 03/31/20 06:45 Blood Blood Culture - Preliminary NO GROWTH AFTER 24 HOURS Resulted 03/31/20 01:42 Urine,Clean Catch Urine Culture - Preliminary NO GROWTH AFTER 24 HOURS Resulted Laboratory Tests 04/02/20 04:50: White Blood Count 17.0H, Red Blood Count 5.39, Hemoglobin 9.7L, Hematocrit 33.9L , Mean Corpuscular Volume 63L, Mean Corpuscular Hemoglobin 17.9L, Mean Corpuscular Hemoglobin Concent 28.5L, Red Cell Distribution Width 23.3H, Platelet Count 224, Mean Platelet Volume 8.0, Neutrophils (%) (Auto) 84.0H, Lymphocytes (%) (Auto) 8.2L, Monocytes (%) (Auto) 6.8, Eosinophils (%) (Auto) 0.3, Basophils (%) (Auto) 0.7, Erythrocyte Sedimentation Rate 42H, Prothrombin Time 13.4H, Prothromb Time International Ratio 1.2H, Activated Partial Thromboplast Time 44H, Sodium Level 135L, Potassium Level 3.1L, Chloride Level 100, Carbon Dioxide Level 31, Anion Gap 4L, Blood Urea Nitrogen 4L, Creatinine 0.7, Estimat Glomerular Filtration Rate > 60, Glucose Level 96, Lactic Acid Level 1.00, Calcium Level 8.6, Magnesium Level 1.9, Total Bilirubin 0.4, Aspartate Amino Transf (AST/SGOT) 34, Alanine Aminotransferase (ALT/SGPT) 11L, Alkaline Phosphatase 87, C-Reactive Protein, Quantitative [Pending], Total Protein 7.1, Albumin 2.2L, Globulin 4.9, Albumin/Globulin Ratio 0.4L, Amylase Level 21L, Lipase 86 Current Medications Medications (Trade) Dose Ordered Sig/Tonya Route PRN Reason Start Time Stop Time Status Last Admin Dose Admin Acetaminophen (Tylenol) 500 mg Q4H PRN ORAL FEVER 03/29/20 21:45 04/28/20 21:44 03/30/20 18:41 Acetaminophen (Tylenol) 500 mg Q4H PRN ORAL Mild Pain (Pain Scale 1-3) 03/29/20 21:45 04/28/20 21:44 Acetaminophen/ Hydrocodone Bitart (Madison 10/325) 1 tab Q3H PRN ORAL Severe Pain (Pain Scale 7-10) 03/31/20 08:00 04/07/20 07:59 04/02/20 06:11 Acetaminophen/ Hydrocodone Bitart (Mad[place] 5/325) 1 tab Q4H PRN ORAL Moderate Pain (Pain Scale 4-6) 03/29/20 21:45 04/05/20 21:44 Barium Sulfate (Readi-Cat 2) 450 ml NOW PRN ORAL Radiology Procedure 04/01/20 11:45 04/03/20 11:44 Barium Sulfate (Readi-Cat 2) 450 ml NOW PRN ORAL Radiology Procedure 04/01/20 11:45 04/03/20 11:44 Dextrose/ Electrolytes 1,000 ml @ 100 mls/hr Q10H IV 04/01/20 09:00 05/01/20 08:59 04/02/20 05:00 Diatrizoate Meglum/ Diatrizoate Sod (Gastrografin) 30 ml NOW PRN ORAL Radiology Procedure 04/01/20 11:45 04/03/20 11:44 Hydromorphone HCl (Dilaudid) 1 mg EVERY 3 HOURS PRN IVP Mild Pain (Pain Scale 1-3) 03/30/20 08:00 04/06/20 07:59 Hydromorphone HCl (Dilaudid) 2 mg Q2H PRN IVP Severe Pain (Pain Scale 7-10) 03/30/20 08:00 04/06/20 07:59 03/31/20 08:31 Hydromorphone HCl (Dilaudid) 2 mg Q3H PRN IVP Moderate Pain (Pain Scale 4-6) 03/30/20 08:00 04/06/20 07:59 Iohexol (OMNIPAQUE-300 100ml) 100 ml NOW PRN INJ Radiology Procedure 04/01/20 11:45 04/03/20 11:44 Iron Sucrose 100 mg/Sodium Chloride 60 ml @ 240 mls/hr BEDTIME IVPB 03/31/20 21:00 04/04/20 21:14 04/01/20 20:20 Magnesium Hydroxide (Mom) 30 ml DAILYPRN PRN ORAL Constipation 03/29/20 21:45 04/28/20 21:44 Methylnaltrexone Puposky (Relistor) 12 mg QOD SUBQ 03/30/20 13:00 06/30/20 12:59 04/01/20 09:00 Ondansetron HCl (Zofran) 4 mg Q4H PRN IVP Nausea & Vomiting 03/29/20 21:45 04/28/20 21:44 Simethicone (Mylicon) 80 mg QIDPRN PRN ORAL gas pain 04/01/20 08:30 06/30/20 08:29 Assessment/Plan Assessment/Plan ASSESSMENT abdominal pain with distention constipation possible ileus leukocytosis uterine fibroids, s/p recent UAE 03/28/20 anemia hypokalemia - PLAN OF CARE MS floor IVF KUB 03/31 UCX 03/31 NGT BCX NGTD no fevers leuk trengin down off Zosyn fever and leuk probably 2/2 necrosis due to recent procedure GI follows pain management, bowel regimen , constipation resolved further replace K,-on IVF with K and goive add 20 meQ KJCL Mg stable amylase., lipase stable repeated CT A/P 04/01 : Evidence of necrosis related to recent embolization. Slight increase in small-moderate free pelvic fluid. Decreased colonic stool burden, though still with gaseous distention of p roximal colon. No bowel thickening. No perforation. Development of small pleural effusions and increasing basilar atelectasis. Simethicone prn for gas pain monitor HH with goal to keep Hgb > 7 -remains at baseline on IV Venofer supportive care case discussed and evaluated by supervising physician Odessa Rutherford NP, Janet NP Apr 02, 2020 08:34
--- NOTE | 2020-04-02 08:59 | NUR ---
PT EVALUATION NOTE Patient seen for initial evaluation. Patient demonstrates independence with bed mobility, transfers and ambulation without an assistive device. Skilled inpatient PT intervention not indicated as patient is independent with all ADLs. Patient discharged from PT, Eliceo GUY notified. Addendum: 04/02/20 at 0900 by SHIVA ENRIQUEZ PT Amended: Links added.
--- NOTE | 2020-04-02 09:00 | NUR ---
NURSE NOTES: Odessa ordered potassium chloride IVPB due to potassium level of 3.1 Patient is ambulating with PT on hallway @ this time. Will administer potassium chloride when patient is available.
--- NOTE | 2020-04-02 09:30 | NUR ---
NURSE NOTES: RN started IVPB potassium chloride but in 5 mins,patient called and screamed stating it was burning. Rn stopped the medication and left massage to Odessa. awaiting for return call.
--- NOTE | 2020-04-02 10:20 | NUR ---
NURSE NOTES: RN restarted IVF of D5 1/2 NS with 20MEQ KCL @100cc/hr, IV is flushable, no s/s of infiltration but patient complains it morin with IVF. RN offered new IV insertion and importance of getting IVF since patient is on NPO but patient refused new IV insertion. Patient denies any cardiac issue @ this time. Awaiting for return call from Odessa.
--- NOTE | 2020-04-02 10:40 | NUR ---
NURSE NOTES: Received call from Odessa and RN relayed episodes of burning on IV site due to potassium chloride IVPB and IVF and received new order to hold IVF for an hour and give k-dur.
--- NOTE | 2020-04-02 10:46 | NUR ---
NURSE NOTES: Received call from Dr. Ramirez with new order to start regular diet.
--- NOTE | 2020-04-02 11:57 | NUR ---
NURSE NOTES: RN explained to the patient about diet and she requested clear liquid diet. Dr. Johnson agreed.
[2020-04-02 12:00] VITALS: BP 143/92
--- NOTE | 2020-04-02 13:00 | NUR ---
NURSE NOTES: Patient consumed 25% of lunch without difficulties.
--- NOTE | 2020-04-02 13:46 | Surgery Progress Note ---
Surgery Progress Note Subjective Symptoms: improved, tolerating diet, voiding well, passing flatus, BM, pain decreased Objective Last 24 Hour Vital Signs Date Time Temp Pulse Resp B/P (MAP) Pulse Ox O2 Delivery O2 Flow Rate FiO2 04/02/20 12:00 98.8 96 18 143/92 (109) 97 04/02/20 09:00 Room Air 04/02/20 08:00 98.6 92 18 130/72 (91) 97 04/02/20 04:00 98.5 101 18 148/90 (109) 95 04/02/20 00:00 98.7 91 18 129/85 (100) 92 04/01/20 21:00 Room Air 04/01/20 20:00 99.2 107 17 133/85 (101) 94 04/01/20 16:00 97.3 110 18 121/74 (90) 95 I&O Intake and Output 04/01/20 04/02/20 19:00 07:00 Intake Total 100 ml Balance 100 ml IV Total 100 ml # Voids 2 # Bowel Movements 2 1 Cardiovascular: RSR Respiratory: clear Abdomen: soft, distended, tenderness - decreased, present bowel sounds Extremities: no edema, no tenderness, no cyanosis Laboratory Tests Test 04/02/20 04:50 White Blood Count 17.0 K/UL (4.8-10.8) H Red Blood Count 5.39 M/UL (4.20-5.40) Hemoglobin 9.7 G/DL (12.0-16.0) L Hematocrit 33.9 % (37.0-47.0) L Mean Corpuscular Volume 63 FL (80-99) L Mean Corpuscular Hemoglobin 17.9 PG (27.0-31.0) L Mean Corpuscular Hemoglobin Concent 28.5 G/DL (32.0-36.0) L Red Cell Distribution Width 23.3 % (11.6-14.8) H Platelet Count 224 K/UL (150-450) Mean Platelet Volume 8.0 FL (6.5-10.1) Neutrophils (%) (Auto) 84.0 % (45.0-75.0) H Lymphocytes (%) (Auto) 8.2 % (20.0-45.0) L Monocytes (%) (Auto) 6.8 % (1.0-10.0) Eosinophils (%) (Auto) 0.3 % (0.0-3.0) Basophils (%) (Auto) 0.7 % (0.0-2.0) Erythrocyte Sedimentation Rate 42 MM/HR (0-20) H Prothrombin Time 13.4 SEC (9.30-11.50) H Prothromb Time International Ratio 1.2 (0.9-1.1) H Activated Partial Thromboplast Time 44 SEC (23-33) H Sodium Level 135 MMOL/L (136-145) L Potassium Level 3.1 MMOL/L (3.5-5.1) L Chloride Level 100 MMOL/L (98-107) Carbon Dioxide Level 31 MMOL/L (21-32) Anion Gap 4 mmol/L (5-15) L Blood Urea Nitrogen 4 mg/dL (7-18) L Creatinine 0.7 MG/DL (0.55-1.30) Estimat Glomerular Filtration Rate > 60 mL/min (>60) Glucose Level 96 MG/DL (74-106) Lactic Acid Level 1.00 mmol/L (0.4-2.0) Calcium Level 8.6 MG/DL (8.5-10.1) Magnesium Level 1.9 MG/DL (1.8-2.4) Total Bilirubin 0.4 MG/DL (0.2-1.0) Aspartate Amino Transf (AST/SGOT) 34 U/L (15-37) Alanine Aminotransferase (ALT/SGPT) 11 U/L (12-78) L Alkaline Phosphatase 87 U/L (46-116) C-Reactive Protein, Quantitative 33.7 mg/dL (0.00-0.90) H Total Protein 7.1 G/DL (6.4-8.2) Albumin 2.2 G/DL (3.4-5.0) L Globulin 4.9 g/dL Albumin/Globulin Ratio 0.4 (1.0-2.7) L Amylase Level 21 U/L (25-115) L Lipase 86 U/L (73-393) Plan Problems: (1) Hepatic cyst (2) Anemia (3) Constipation (4) Hypokalemia (5) Abdominal pain Assessment & Plan: 49-year-old female with abdominal pain distention resolved nausea vomiting and intermittent diarrhea. On examination she is fairly distended and uncomfortable on palpation all quadrants. No peritonitis. Febrile leukocytosis abnormal labs. Known history of fibroids. Status post embolization Patient's prior CT was reviewed as well as her KUB. No process noted at that time the patient states that she is actually been feeling more distended and uncomfortable. Given these findings and the recent changes a repeat CT is indicated and recomm ended. I discussed this with the patient and obtained consent from her. I explained to her the rationale the reasoning. Need to ensure no acute process and given her examination this is definitely concerning for potentially something. N.p.o. IV fluids hold on NG tube. We will follow with recommendations of imaging available we will follow with serial abdominal examinations thank you for let me to participate in patient's care ABDOMEN: Liver: Small right hepatic cyst. Gallbladder and bile ducts: Unremarkable. No calcified stones. Pancreas: Unremarkable. Spleen: Unremarkable. Adrenals: Unremarkable. Kidneys and ureters: Unremarkable. No hydronephrosis. Stomach and bowel: Moderate colonic stool/air which may be ileus/constipation. No mechanical bowel obstruction. No diverticulitis. PELVIS: Appendix: No findings to suggest acute appendicitis. Bladder: Unremarkable. Reproductive: Large uterine fibroids. ABDOMEN and PELVIS: Intraperitoneal space: No free air. Bones/joints: No acute fracture. Soft tissues: Unremarkable. Vasculature: Unremarkable. Lymph nodes: Unremarkable. IMPRESSION: 1. Moderate colonic stool/air which may be ileus/constipation. No mechanical bowel obstruction. No diverticulitis. 2. Large uterine fibroids. repeat ct noted pain improved no n/v passing flatus and bm tolerating diet okay to adv diet d/c planning (6) Post-op pain (7) Ileus Justin Johnson Apr 02, 2020 13:46
--- NOTE | 2020-04-02 14:27 | General Surgery Progress Note ---
General Surgery-Progress Note Subjective Procedure Performed uterine fibroid embolization Symptoms: improved, tolerating diet, voiding well, passing flatus, BM, pain decreased Objective Last 24 Hour Vital Signs Date Time Temp Pulse Resp B/P (MAP) Pulse Ox O2 Delivery O2 Flow Rate FiO2 04/02/20 12:00 98.8 96 18 143/92 (109) 97 04/02/20 09:00 Room Air 04/02/20 08:00 98.6 92 18 130/72 (91) 97 04/02/20 04:00 98.5 101 18 148/90 (109) 95 04/02/20 00:00 98.7 91 18 129/85 (100) 92 04/01/20 21:00 Room Air 04/01/20 20:00 99.2 107 17 133/85 (101) 94 04/01/20 16:00 97.3 110 18 121/74 (90) 95 I&O Intake and Output 04/01/20 04/02/20 19:00 07:00 Intake Total 100 ml Balance 100 ml IV Total 100 ml # Voids 2 # Bowel Movements 2 1 Dressing: dry Wound: clean Cardiovascular: RSR Respiratory: clear Abdomen: soft, flat, distended, present bowel sounds Extremities: no edema, no tenderness, no cyanosis Laboratory Tests Test 04/02/20 04:50 White Blood Count 17.0 K/UL (4.8-10.8) H Red Blood Count 5.39 M/UL (4.20-5.40) Hemoglobin 9.7 G/DL (12.0-16.0) L Hematocrit 33.9 % (37.0-47.0) L Mean Corpuscular Volume 63 FL (80-99) L Mean Corpuscular Hemoglobin 17.9 PG (27.0-31.0) L Mean Corpuscular Hemoglobin Concent 28.5 G/DL (32.0-36.0) L Red Cell Distribution Width 23.3 % (11.6-14.8) H Platelet Count 224 K/UL (150-450) Mean Platelet Volume 8.0 FL (6.5-10.1) Neutrophils (%) (Auto) 84.0 % (45.0-75.0) H Lymphocytes (%) (Auto) 8.2 % (20.0-45.0) L Monocytes (%) (Auto) 6.8 % (1.0-10.0) Eosinophils (%) (Auto) 0.3 % (0.0-3.0) Basophils (%) (Auto) 0.7 % (0.0-2.0) Erythrocyte Sedimentation Rate 42 MM/HR (0-20) H Prothrombin Time 13.4 SEC (9.30-11.50) H Prothromb Time International Ratio 1.2 (0.9-1.1) H Activated Partial Thromboplast Time 44 SEC (23-33) H Sodium Level 135 MMOL/L (136-145) L Potassium Level 3.1 MMOL/L (3.5-5.1) L Chloride Level 100 MMOL/L (98-107) Carbon Dioxide Level 31 MMOL/L (21-32) Anion Gap 4 mmol/L (5-15) L Blood Urea Nitrogen 4 mg/dL (7-18) L Creatinine 0.7 MG/DL (0.55-1.30) Estimat Glomerular Filtration Rate > 60 mL/min (>60) Glucose Level 96 MG/DL (74-106) Lactic Acid Level 1.00 mmol/L (0.4-2.0) Calcium Level 8.6 MG/DL (8.5-10.1) Magnesium Level 1.9 MG/DL (1.8-2.4) Total Bilirubin 0.4 MG/DL (0.2-1.0) Aspartate Amino Transf (AST/SGOT) 34 U/L (15-37) Alanine Aminotransferase (ALT/SGPT) 11 U/L (12-78) L Alkaline Phosphatase 87 U/L (46-116) C-Reactive Protein, Quantitative 33.7 mg/dL (0.00-0.90) H Total Protein 7.1 G/DL (6.4-8.2) Albumin 2.2 G/DL (3.4-5.0) L Globulin 4.9 g/dL Albumin/Globulin Ratio 0.4 (1.0-2.7) L Amylase Level 21 U/L (25-115) L Lipase 86 U/L (73-393) Plan Additional Comments encourage non narcotic pain relief, advance diet, replace K+, possible AM discharge, leukocytosis resolving. Song Goodwin MD Apr 02, 2020 14:27
[2020-04-02 16:00] VITALS: BP 140/91
--- NOTE | 2020-04-02 16:00 | NUR ---
NURSE NOTES: Patient is asleep @ this time,breathing even and unlabored.
--- NOTE | 2020-04-02 18:00 | NUR ---
NURSE NOTES: no active bleeding but spotting on the pad and soft BM x4. IVF running. Patient denies pain on IV site.
--- NOTE | 2020-04-02 19:10 | NUR ---
NURSE HAND-OFF: Important Events on Shift: started full liquid diet, passing gas, given simethicone, potassium level 3.1, k-dur given Patient Status: stable Diet: full liquid diet Pending Orders: Pending Results/Labs:[] Pending MD notification:[] Latest Vital Signs: Temperature 98.8 , Pulse 94 , B/P 140 /91 , Respiratory Rate 18 , O2 SAT 97 , Room Air, O2 Flow Rate . Vital Sign Comment: [] Latest Valdez Fall Score: 35 Fall Risk: Medium Risk Safety Measures: Call light Within Reach, Bed Alarm , Side Rails Side Rails x2, Bed position Low and Locked. Fall Precautions: Yellow Socks Yellow Gown Door Sign Patient Fall Education Report given to Tang and endorsed plan of care.
--- NOTE | 2020-04-02 19:55 | General Progress Note ---
Subjective Allergies: Coded Allergies: No Known Allergies (Unverified , 03/29/20) Subjective Above noted better today (+)BM (+) Flatus less distended Objective Last 24 Hour Vital Signs Date Time Temp Pulse Resp B/P (MAP) Pulse Ox O2 Delivery O2 Flow Rate FiO2 04/02/20 16:00 98.8 94 18 140/91 (107) 97 04/02/20 12:00 98.8 96 18 143/92 (109) 97 04/02/20 09:00 Room Air 04/02/20 08:00 98.6 92 18 130/72 (91) 97 04/02/20 04:00 98.5 101 18 148/90 (109) 95 04/02/20 00:00 98.7 91 18 129/85 (100) 92 04/01/20 21:00 Room Air 04/01/20 20:00 99.2 107 17 133/85 (101) 94 Intake and Output 04/01/20 04/02/20 19:00 07:00 Intake Total 100 ml Balance 100 ml IV Total 100 ml # Voids 2 # Bowel Movements 2 1 Laboratory Tests 04/02/20 04:50: White Blood Count 17.0H, Red Blood Count 5.39, Hemoglobin 9.7L, Hematocrit 33.9L , Mean Corpuscular Volume 63L, Mean Corpuscular Hemoglobin 17.9L, Mean Corpuscular Hemoglobin Concent 28.5L, Red Cell Distribution Width 23.3H, Platelet Count 224, Mean Platelet Volume 8.0, Neutrophils (%) (Auto) 84.0H, Lymphocytes (%) (Auto) 8.2L, Monocytes (%) (Auto) 6.8, Eosinophils (%) (Auto) 0.3, Basophils (%) (Auto) 0.7, Erythrocyte Sedimentation Rate 42H, Prothrombin Time 13.4H, Prothromb Time International Ratio 1.2H, Activated Partial Thromboplast Time 44H, Sodium Level 135L, Potassium Level 3.1L, Chloride Level 100, Carbon Dioxide Level 31, Anion Gap 4L, Blood Urea Nitrogen 4L, Creatinine 0.7, Estimat Glomerular Filtration Rate > 60, Glucose Level 96, Lactic Acid Level 1.00, Calcium Level 8.6, Magnesium Level 1.9, Total Bilirubin 0.4, Aspartate Amino Transf (AST/SGOT) 34, Alanine Aminotransferase (ALT/SGPT) 11L, Alkaline Phosphatase 87, C-Reactive Protein, Quantitative 33.7H, Total Protein 7.1, Albumin 2.2L, Globulin 4.9, Albumin/Globulin Ratio 0.4L, Amylase Level 21L, Lipase 86 Height (Feet): 5 Height (Inches): 5.00 Weight (Pounds): 135 Objective WDWN NCAT supple CTA RR abd less distended, less TTP abdomen no edema Assessment/Plan Assessment/Plan: Assessment - s/p UAE - abd distention - no perforation or abscess on repeat CT - Leucocytosis/Temp, due to necrosis Recommendation - po as tolerated - continue observation - ambulate - follow labs Scarlett De La Torre MD Apr 02, 2020 19:55
[2020-04-02 20:00] VITALS: BP 128/88
--- NOTE | 2020-04-02 20:17 | NUR ---
NURSES NOTE: Pt taking a shower upon start of rounds. Pt is up and walking. A/OX4, denies pain currently. No outward s/s of distress noted. Breathing pattern is even and unlabored on RA. IV site L FA, is in place, infusing IVF without incident. Pt states she has no pain or discomfort with current infusions. Pt is still experience some spotting from vaginal area, but no heavy bleeding. Call light within reach. Pt will continue to be monitored.
[2020-04-02] MEDS: Iron Sucrose 100 MG in NS 55 ML IVPB SCH (22:05)
[2020-04-03 04:00] VITALS: BP 130/76
[2020-04-03 07:23] LABS: BASOPHILS % (AUTO) 0.8 % (0.0-2.0); EOSINOPHILS % (AUTO) 1.3 % (0.0-3.0); HEMATOCRIT 32.1 % (37.0-47.0); HEMOGLOBIN 9.1 G/DL (12.0-16.0); LYMPHOCYTES % (AUTO) 12.1 % (20.0-45.0); MEAN CORPUSCULAR VOLUME 62 FL (80-99); NEUTROPHILS % (AUTO) 77.8 % (45.0-75.0); PLATELET COUNT 251 K/UL (150-450); RED BLOOD COUNT 5.19 M/UL (4.20-5.40); RED CELL DISTRIBUTION WIDTH 22.9 % (11.6-14.8); WHITE BLOOD COUNT 10.6 K/UL (4.8-10.8)
[2020-04-03 07:24] LABS: ALANINE AMINOTRANSFERASE 15 U/L (12-78); ALBUMIN 2.2 G/DL (3.4-5.0); ALBUMIN/GLOBULIN RATIO 0.5 (1.0-2.7); ALKALINE PHOSPHATASE 77 U/L (46-116); ANION GAP 7 mmol/L (5-15); ASPARTATE AMINO TRANSFERASE 39 U/L (15-37); BILIRUBIN,TOTAL 0.2 MG/DL (0.2-1.0); BLOOD UREA NITROGEN 3 mg/dL (7-18); CALCIUM 8.7 MG/DL (8.5-10.1); CARBON DIOXIDE 26 MMOL/L (21-32); CHLORIDE 102 MMOL/L (98-107); CREATININE 0.7 MG/DL (0.55-1.30); POTASSIUM 3.5 MMOL/L (3.5-5.1); SODIUM 135 MMOL/L (136-145)
--- NOTE | 2020-04-03 07:30 | NUR ---
NURSE NOTES: Patient is in bed awake and able to verbalize needs. Stable. Patient c/o abdominal cramping. Patient able to pass gas and have diarrhea. Patient instructed to use call light for assistance, verbalized understanding. Patient is in bed in locked and lowest position with call light within reach. All needs met at this time. Will continue to monitor.
[2020-04-03] MEDS: D5 1/2NS w/KCl 20mEq 1,000 ML IV SCH (07:53)
[2020-04-03 08:00] VITALS: BP 131/78
--- NOTE | 2020-04-03 08:02 | NUR ---
NURSE HAND-OFF: Important Events on Shift:[Pt diet now Regular] Patient Status: [Stable] Diet: [Regular] Pending Orders: [Possible d/c] Pending Results/Labs:[All morning labs endorsed to AM nurse. Still pending] Pending MD notification:[] Latest Vital Signs: Temperature 99.0 , Pulse 88 , B/P 130 /76 , Respiratory Rate 17 , O2 SAT 94 , Room Air, O2 Flow Rate . Vital Sign Comment: [WNL] Latest Valdez Fall Score: 35 Fall Risk: Medium Risk Safety Measures: Call light Within Reach, Bed Alarm , Side Rails Side Rails x2, Bed position Low and Locked. Fall Precautions: Yellow Socks Yellow Gown Door Sign Patient Fall Education Report given to [BROOKS Carias ]. Addendum: 04/03/20 at 0809 by Ana Beckwith RN PENDING MD NOTIFICATION: Possible AM labs
[2020-04-03] MEDS: Relistor 12mg/0.6ml Vial SUBQ SCH ×2 (09:00→09:04)
--- NOTE | 2020-04-03 09:29 | NUR ---
NURSE NOTES: IV removed as ordered, stool sample sent down.
--- NOTE | 2020-04-03 11:45 | General Progress Note ---
Subjective ROS Limited/Unobtainable: Yes Allergies: Coded Allergies: No Known Allergies (Unverified , 03/29/20) Objective Last 24 Hour Vital Signs Date Time Temp Pulse Resp B/P (MAP) Pulse Ox O2 Delivery O2 Flow Rate FiO2 04/03/20 09:00 Room Air 04/03/20 08:00 98.3 88 18 131/78 (95) 96 04/03/20 04:00 99.0 88 17 130/76 (94) 94 04/02/20 21:00 Room Air 04/02/20 20:00 98.8 83 18 128/88 (101) 98 04/02/20 16:00 98.8 94 18 140/91 (107) 97 04/02/20 12:00 98.8 96 18 143/92 (109) 97 Intake and Output 04/02/20 04/03/20 19:00 07:00 Intake Total 1200 ml 520 ml Balance 1200 ml 520 ml Intake Oral 300 ml 420 ml IV Total 900 ml 100 ml # Voids 4 2 # Bowel Movements 4 2 Laboratory Tests 04/03/20 06:40: White Blood Count 10.6, Red Blood Count 5.19, Hemoglobin 9.1L, Hematocrit 32.1L, Mean Corpuscular Volume 62L, Mean Corpuscular Hemoglobin 17.6L, Mean Corpuscular Hemoglobin Concent 28.5L, Red Cell Distribution Width 22.9H, Platelet Count 251, Mean Platelet Volume 8.7, Neutrophils (%) (Auto) 77.8H, Lymphocytes (%) (Auto) 12.1L, Monocytes (%) (Auto) 8.0, Eosinophils (%) (Auto) 1.3, Basophils (%) (Auto) 0.8, Sodium Level 135L, Potassium Level 3.5, Chloride Level 102, Carbon Dioxide Level 26, Anion Gap 7, Blood Urea Nitrogen 3L, Creatinine 0.7, Estimat Glomerular Filtration Rate > 60, Glucose Level 113H, Calcium Level 8.7, Total Bilirubin 0.2, Aspartate Amino Transf (AST/SGOT) 39H, Alanine Aminotransferase (ALT/SGPT) 15, Alkaline Phosphatase 77, Total Protein 6.6, Albumin 2.2L, Globulin 4.4, Albumin/Globulin Ratio 0.5L Height (Feet): 5 Height (Inches): 5.00 Weight (Pounds): 135 General Appearance: no apparent distress EENT: normal ENT inspection Neck: supple Cardiovascular: normal rate Respiratory/Chest: decreased breath sounds Abdomen: normal bowel sounds, non tender, soft Extremities: non-tender Assessment/Plan Problem List: (1) Post-op pain ICD Codes: G89.18 - Other acute postprocedural pain SNOMED: 214589619 (2) Abdominal pain ICD Codes: R10.9 - Unspecified abdominal pain SNOMED: 45457757 (3) Hypokalemia ICD Codes: E87.6 - Hypokalemia SNOMED: 94268413 (4) Constipation ICD Codes: K59.00 - Constipation, unspecified SNOMED: 65418642 (5) Anemia ICD Codes: D64.9 - Anemia, unspecified SNOMED: 989942891 (6) Hepatic cyst ICD Codes: K76.89 - Other specified diseases of liver SNOMED: 79981843 Assessment/Plan: still has diarrhea recent CT reviewed pain is better wanys to go home Dayron Gomez MD Apr 03, 2020 11:45
[2020-04-03 12:00] VITALS: BP 130/78
--- NOTE | 2020-04-03 12:14 | Surgery Progress Note ---
Surgery Progress Note Subjective Symptoms: improved, tolerating diet, voiding well, passing flatus, BM, pain decreased Objective Last 24 Hour Vital Signs Date Time Temp Pulse Resp B/P (MAP) Pulse Ox O2 Delivery O2 Flow Rate FiO2 04/03/20 09:00 Room Air 04/03/20 08:00 98.3 88 18 131/78 (95) 96 04/03/20 04:00 99.0 88 17 130/76 (94) 94 04/02/20 21:00 Room Air 04/02/20 20:00 98.8 83 18 128/88 (101) 98 04/02/20 16:00 98.8 94 18 140/91 (107) 97 I&O Intake and Output 04/02/20 04/03/20 19:00 07:00 Intake Total 1200 ml 520 ml Balance 1200 ml 520 ml Intake Oral 300 ml 420 ml IV Total 900 ml 100 ml # Voids 4 2 # Bowel Movements 4 2 Cardiovascular: RSR Respiratory: clear Abdomen: soft, non-tender, present bowel sounds, non-distended Extremities: no edema, no tenderness, no cyanosis Laboratory Tests Test 04/03/20 06:40 White Blood Count 10.6 K/UL (4.8-10.8) Red Blood Count 5.19 M/UL (4.20-5.40) Hemoglobin 9.1 G/DL (12.0-16.0) L Hematocrit 32.1 % (37.0-47.0) L Mean Corpuscular Volume 62 FL (80-99) L Mean Corpuscular Hemoglobin 17.6 PG (27.0-31.0) L Mean Corpuscular Hemoglobin Concent 28.5 G/DL (32.0-36.0) L Red Cell Distribution Width 22.9 % (11.6-14.8) H Platelet Count 251 K/UL (150-450) Mean Platelet Volume 8.7 FL (6.5-10.1) Neutrophils (%) (Auto) 77.8 % (45.0-75.0) H Lymphocytes (%) (Auto) 12.1 % (20.0-45.0) L Monocytes (%) (Auto) 8.0 % (1.0-10.0) Eosinophils (%) (Auto) 1.3 % (0.0-3.0) Basophils (%) (Auto) 0.8 % (0.0-2.0) Sodium Level 135 MMOL/L (136-145) L Potassium Level 3.5 MMOL/L (3.5-5.1) Chloride Level 102 MMOL/L (98-107) Carbon Dioxide Level 26 MMOL/L (21-32) Anion Gap 7 mmol/L (5-15) Blood Urea Nitrogen 3 mg/dL (7-18) L Creatinine 0.7 MG/DL (0.55-1.30) Estimat Glomerular Filtration Rate > 60 mL/min (>60) Glucose Level 113 MG/DL (74-106) H Calcium Level 8.7 MG/DL (8.5-10.1) Total Bilirubin 0.2 MG/DL (0.2-1.0) Aspartate Amino Transf (AST/SGOT) 39 U/L (15-37) H Alanine Aminotransferase (ALT/SGPT) 15 U/L (12-78) Alkaline Phosphatase 77 U/L (46-116) Total Protein 6.6 G/DL (6.4-8.2) Albumin 2.2 G/DL (3.4-5.0) L Globulin 4.4 g/dL Albumin/Globulin Ratio 0.5 (1.0-2.7) L Plan Problems: (1) Hepatic cyst (2) Anemia (3) Constipation (4) Hypokalemia (5) Abdominal pain Assessment & Plan: 49-year-old female with abdominal pain distention resolved nausea vomiting and intermittent diarrhea. On examination she is fairly distended and uncomfortable on palpation all quadrants. No peritonitis. Febrile leukocytosis abnormal labs. Known history of fibroids. Status post embolization Patient's prior CT was reviewed as well as her KUB. No process noted at that ti me the patient states that she is actually been feeling more distended and uncomfortable. Given these findings and the recent changes a repeat CT is indicated and recommended. I discussed this with the patient and obtained consent from her. I explained to her the rationale the reasoning. Need to ensure no acute process and given her examination this is definitely concerning for potentially something. N.p.o. IV fluids hold on NG tube. We will follow with recommendations of imaging available we will follow with serial abdominal examinations thank you for let me to participate in patient's care improving tolerating diet ABDOMEN: Liver: Small right hepatic cyst. Gallbladder and bile ducts: Unremarkable. No calcified stones. Pancreas: Unremarkable. Spleen: Unremarkable. Adrenals: Unremarkable. Kidneys and ureters: Unremarkable. No hydronephrosis. Stomach and bowel: Moderate colonic stool/air which may be ileus/constipation. No mechanical bowel obstruction. No diverticulitis. PELVIS: Appendix: No findings to suggest acute appendicitis. Bladder: Unremarkable. Reproductive: Large uterine fibroids. ABDOMEN and PELVIS: Intraperitoneal space: No free air. Bones/joints: No acute fracture. Soft tissues: Unremarkable. Vasculature: Unremarkable. Lymph nodes: Unremarkable. IMPRESSION: 1. Moderate colonic stool/air which may be ileus/constipation. No mechanical bowel obstruction. No diverticulitis. 2. Large uterine fibroids. repeat ct noted pain improved no n/v passing flatus and bm tolerating diet okay to adv diet d/c planning rx written (6) Post-op pain (7) Ileus Justin Johnson Apr 03, 2020 12:14
--- NOTE | 2020-04-03 12:54 | NUR ---
NURSE NOTES: Patient discharged home as ordered. Stable. VSS. Patient was given thorough discharge instructions and follow up instructions by Dr. Ramirez. Patient verbalized understanding. Patient was seen and assessed by surgeon prior to discharge. All questions and concerns addressed by surgeon. All teaching reinforced by RN. No IV access. Skin is c/d/i. Patient assisted into daughter Evelyn's car by RN without incident. Patient has all belongings. Patient stated she will get her prescription filled at home pharmacy.
--- NOTE | 2020-04-03 14:24 | General Surgery Progress Note ---
General Surgery-Progress Note Subjective Procedure Performed uterine fibroid embolization Symptoms: improved, passing flatus, BM, pain decreased Objective Last 24 Hour Vital Signs Date Time Temp Pulse Resp B/P (MAP) Pulse Ox O2 Delivery O2 Flow Rate FiO2 04/03/20 12:00 98.5 85 18 130/78 (95) 96 04/03/20 09:00 Room Air 04/03/20 08:00 98.3 88 18 131/78 (95) 96 04/03/20 04:00 99.0 88 17 130/76 (94) 94 04/02/20 21:00 Room Air 04/02/20 20:00 98.8 83 18 128/88 (101) 98 04/02/20 16:00 98.8 94 18 140/91 (107) 97 I&O Intake and Output 04/02/20 04/03/20 19:00 07:00 Intake Total 1200 ml 520 ml Balance 1200 ml 520 ml Intake Oral 300 ml 420 ml IV Total 900 ml 100 ml # Voids 4 2 # Bowel Movements 4 2 Dressing: dry Wound: clean Drains: none Cardiovascular: RSR Respiratory: clear Abdomen: soft, flat, non-tender, present bowel sounds Laboratory Tests Test 04/03/20 06:40 White Blood Count 10.6 K/UL (4.8-10.8) Red Blood Count 5.19 M/UL (4.20-5.40) Hemoglobin 9.1 G/DL (12.0-16.0) L Hematocrit 32.1 % (37.0-47.0) L Mean Corpuscular Volume 62 FL (80-99) L Mean Corpuscular Hemoglobin 17.6 PG (27.0-31.0) L Mean Corpuscular Hemoglobin Concent 28.5 G/DL (32.0-36.0) L Red Cell Distribution Width 22.9 % (11.6-14.8) H Platelet Count 251 K/UL (150-450) Mean Platelet Volume 8.7 FL (6.5-10.1) Neutrophils (%) (Auto) 77.8 % (45.0-75.0) H Lymphocytes (%) (Auto) 12.1 % (20.0-45.0) L Monocytes (%) (Auto) 8.0 % (1.0-10.0) Eosinophils (%) (Auto) 1.3 % (0.0-3.0) Basophils (%) (Auto) 0.8 % (0.0-2.0) Sodium Level 135 MMOL/L (136-145) L Potassium Level 3.5 MMOL/L (3.5-5.1) Chloride Level 102 MMOL/L (98-107) Carbon Dioxide Level 26 MMOL/L (21-32) Anion Gap 7 mmol/L (5-15) Blood Urea Nitrogen 3 mg/dL (7-18) L Creatinine 0.7 MG/DL (0.55-1.30) Estimat Glomerular Filtration Rate > 60 mL/min (>60) Glucose Level 113 MG/DL (74-106) H Calcium Level 8.7 MG/DL (8.5-10.1) Total Bilirubin 0.2 MG/DL (0.2-1.0) Aspartate Amino Transf (AST/SGOT) 39 U/L (15-37) H Alanine Aminotransferase (ALT/SGPT) 15 U/L (12-78) Alkaline Phosphatase 77 U/L (46-116) Total Protein 6.6 G/DL (6.4-8.2) Albumin 2.2 G/DL (3.4-5.0) L Globulin 4.4 g/dL Albumin/Globulin Ratio 0.5 (1.0-2.7) L Additional Comments leukocytosis resolved, potassium now in normal range Plan Additional Comments discharge home, FU two days Song Goodwin MD Apr 03, 2020 14:24
--- NOTE | 2020-04-04 12:59 | NUR ---
INSURANCE DC INSTRUCTIONS ( 04/01-04/03) [facility] [place] F: [phone]
--- NOTE | 2020-04-04 16:46 | Discharge Summary ---
Discharge Summary Discharge Summary _ Date of admission: 03/29/2020 Date of discharge: 04/03/[address] Mccarthy History of Present Illness and Brief Hospital Course Ms. Lam is a 49-year-old female with past medical history of uterine fibroids s/p uterine artery embolization with Dr. Goodwin on 03/28/20, who presented to the ED for abdominal pain and back pain since the procedure. EKG showed normal sinus rhythm without any ischemia. CT of abdomen/pelvis scan showed ileus and constipation without small bowel obstruction. Patient was given morphine for pain control. In the emergency department patient received empiric antibiotics, antiemetics, IV fluids, analgesics, and Protonix and was admitted for further management. Given abdominal distention and bloating, she was given Relistor. She started having diarrhea with continued abdominal distention, and new onset leukocytosis with fever. However, a repeat CT did not demonstrate perforation or abscess. Then, patient started having bowel movement and flatus with lessened abdominal distention. On the day of discharge, her pain level improved. Her white count was back to within normal limits and she no longer had fevers. She no longer complained of nausea vomiting and began passing flatus and bowel movement. She began tolerating diet and wished to be discharged. She is to follow-up with general surgery in 2 days. She was discharged home in stable condition. Consultants: Surgery Dr. Johnson Discharge Condition Improved and stable Discharge Activity Advance as tolerated Discharge Diet Advance as tolerated Final diagnoses Hepatic cyst Anemia Constipation Hypokalemia Abdominal pain Postop pain Ileus Uterine fibroids, s/p recent uterine artery embolization 03/28/20 Leukocytosis I have been assigned to dictate discharge summary for this account. I was not involved in the patient's management Herman Plaza Apr 04, 2020 16:46
--- NOTE | 2020-04-05 13:16 | NUR ---
INSURANCE DC SUMMARY FAXED TO [facility] F: [phone] REF #[id number]
== END 2020-04-03 12:45 | disposition home or self-care (01) | DRG 948 ==
LOC: EMR 15:41 → 3E 15:56 → EDBEDREQ 17:49
DX: G89.18 Other acute postprocedural pain (principal); K56.7 Ileus, unspecified; K76.89 Other specified diseases of liver; E87.6 Hypokalemia; K59.00 Constipation, unspecified; D25.9 Leiomyoma of uterus, unspecified; Z98.890 Other specified postprocedural states; D64.9 Anemia, unspecified
CPT/HCPCS: 36415; 74018; 74177; 80048; 80053; 81001; 81003; 82150; 83540; 83550; 83605; 83690; 83735; 84484; 84702; 85007; 85025; 85610; 85651; 85730; 86140; 86850; 86900; 86901; 87040; 87086; 87324; 93005; 96365; 96375; 96376; 99285; J2405; J2765; J8499